=== PATIENT | male | born 1975 | race Two or more races ===

== ENCOUNTER 2024-06-18 05:12 | Inpatient (IN) | payer OTHER, SELFPAY ==
--- NOTE | 2024-06-18 | XR_ITS ---
Examination: MRI foot with intravenous contrast TECHNIQUE: Multiple axial sagittal coronal MRI foot images post intravenous administration 19 cc gadolinium INDICATION: Nonhealing wounds dorsum of the foot at the level of the tarsal bones 3 days with redness swelling and pain and blisters Examination type: June 18, 2024: 42 hours FINDINGS: Prominent soft tissue swelling dorsum of the foot Soft tissue abscess dorsum of the foot, dorsal to the tarsometatarsal junctions second through fifth metatarsals, proximal distal dimension 7 cm mediolateral dimension at least 5 cm cephalad caudad dimension 1.5 cm No lauren cortical bone destruction No pathologic fracture IMPRESSION: 7 x 5 x 1.5 cm soft tissue abscess dorsum of the foot
[2024-06-18 05:13] VITALS: BMI 34.7
[2024-06-18 05:16] VITALS: BP 137/89; PULSE 91; RESP 19; TEMP 36.7; O2SAT 96
--- NOTE | 2024-06-18 05:26 | XR_ITS ---
Examination: Right ankle 2 views TECHNIQUE: AP lateral right ankle 2 views Examination type: June 18, 2024 0611 hours INDICATION: Ankle swelling and pain beginning 8 days ago with nonhealing wound 3 days with discharge FINDINGS: Prominent bimalleolar soft tissue swelling as well as soft tissue swelling dorsum of the foot Soft tissue vascular calcifications No lauren cortical bone destruction at the ankle IMPRESSION: No fracture No lauren cortical bone destruction As clinically warranted, MRI ankle without contrast follow-up would best assess for soft tissue abscess, osteomyelitis
--- NOTE | 2024-06-18 05:27 | PD.EDRME ---
Rapid Medical Screening Exam RME Arrival date/time: 06/18/24 05:12 This is a case of 49-year-old male who came in in the emergency room due to right ankle pain swelling and redness for 8 days worsening symptoms now with the redness on the right lower leg test patient decided to start consult here in the emergency room Chief Complaint: Ankle/Foot Injury Time Seen by Provider: 06/18/24 05:26 Vital signs: Vital Signs Temperature 98.1 F 06/18/24 05:16 Pulse Rate 91 06/18/24 05:16 Respiratory Rate 19 06/18/24 05:16 Blood Pressure 137/89 H 06/18/24 05:16 Pulse Oximetry (%) 96 06/18/24 05:16 Oxygen Delivery Method Room Air 06/18/24 05:16
[2024-06-18 06:12] LABS: Basophils # (Auto) 0.1 Thou/mm3 (0.0-0.2); Basophils % (Auto) 1 % (0-2.5); Eosinophils % (Auto) 0 % (0-10); Hematocrit 39.8 % (41.0-53.0); Hemoglobin 13.2 g/dL (13.5-16.0); Immature Granulocytes % (Auto) 4 % (0-0); Immature Granulocytes Auto 0.61 Thou/mm3 (0.00-0.00); Lymphocytes # (Auto) 1.1 Thou/mm3 (1.0-4.8); Lymphocytes % (Auto) 7 % (10-50); Mean Corpuscular HGB Conc 33.2 g/dl (31.0-37.0); Mean Corpuscular Hemoglobin 29.1 pg (25.0-35.0); Mean Corpuscular Volume 88 fL (80-100); Monocytes # (Auto) 0.9 Thou/mm3 (0.0-0.8); Monocytes % (Auto) 6 % (0-12); Neutrophils % (Auto) 82 % (37-80); Nucleated Red Blood Cell % 0 /100 WBC (0); Platelet Count 257 Thou/mm3 (140-440); RDW Standard Deviation 42.3 fL (35.1-43.9); Red Blood Count 4.53 Miln/mm3 (4.50-5.90); White Blood Count 14.6 Thou/mm3 (3.8-10.6)
[2024-06-18 06:36] LABS: Alanine Aminotransferase 39 U/L (10-49); Albumin, Serum 3.7 gm/dL (3.5-5.0); Albumin/Globulin Ratio 1.1 (1.2-2.2); Alkaline Phosphatase 145 U/L (46-116); Anion Gap 9 (7-16); Aspartate Amino Transferase 17 U/L (0-34); BUN/Creatinine Ratio 16 Ratio (12-20); Bilirubin,Total 0.9 mg/dL (0.3-1.2); Blood Urea Nitrogen 13 mg/dL (9-23); Calcium 8.5 mg/dL (8.3-10.6); Calcium (Corrected) 8.7 mg/dL (8.5-10.1); Carbon Dioxide 26.8 mMol/L (20.0-31.0); Chloride 100 mMol/L (98-107); Creatinine (Component) 0.8 mg/dL (0.6-1.3); Estimated Creatinine Clearance 122.1 mL/min (>60); Globulin 3.3 gm/dL (2.3-3.5); Glucose 385 mg/dL (74-106); Osmolality,Calculated 288 (275-295); Potassium 3.9 mMol/L (3.4-5.1); Sodium 136 mMol/L (136-145); eGFR > 60 See Note
--- NOTE | 2024-06-18 06:47 | XR_ITS ---
Examination: Duplex scan of the lower extremity, unilateral right Date and time of exam: June 18, 2024 0804 hours INDICATIONS: Right leg pain 8 days nonhealing ulcers right leg 3 days Technique: Duplex scan of the extremity veins using B-mode/grayscale imaging and Doppler spectral analysis and color flow Attention is directed to internal echogenicity, compression and augmentation involving these veins, color flow assessment, spectral analysis Findings: Major deep venous structures in the extremity demonstrate normal course and caliber. There is no evidence of deep vein thrombosis. Normal color flow and spectral analysis Impression: Negative for DVT..
[2024-06-18] MEDS: HYDROcodone/APAP 5/325 TABLET 1 TAB PO ×2 (06:52→19:56)
[2024-06-18 07:11] LABS: Lactate (Lactic Acid) 1.5 mMol/L (0.4-2.0)
[2024-06-18 07:19] VITALS: BP 122/84; PULSE 82; RESP 16; TEMP 37.1; O2SAT 96
[2024-06-18 07:22] LABS: Sed Rate (ESR) 86 mm/hr (0-15)
[2024-06-18 07:40] LABS: Glucose Estimated Average 183 mg/dL (80-131)
[2024-06-18 07:41] LABS: C-Reactive Protein > 10.0 mg/dL (0.0-0.9); Procalcitonin 0.69 ng/ml (0.0-0.49)
--- NOTE | 2024-06-18 09:08 | PD.EDANKLE ---
Lower Extremity Injury RME/HPI General Chief Complaint: Ankle/Foot Injury Stated Complaint: RT FOOT SWELLING Time Seen by Provider: 06/18/24 05:26 Arrival date/time: 06/18/24 05:12 49-year-old male diabetic presents to the emergency department for complaints of right lower extremity swelling and pain patient for symptoms ongoing x 8 days patient reports he also noticed blistering to the leg x 3 days. Patient reports no fever nausea vomiting does report pain Limitations: no limitations RME / HPI RME / HPI Narrative: 06/18/24 05:12 This is a case of 49-year-old male who came in in the emergency room due to right ankle pain swelling and redness for 8 days worsening symptoms now with the redness on the right lower leg test patient decided to start consult here in the emergency room Related Data Home Medications ?Medication ?Instructions ?Recorded ?Confirmed atorvastatin 10 mg tablet 10 mg PO QPM 05/31/21 05/31/21 cholecalciferol (vitamin D3) 50 50 mcg PO QDAY 05/31/21 05/31/21 mcg (2,000 unit) capsule (Vitamin D3) empagliflozin 25 mg tablet 25 mg PO QAM 05/31/21 05/31/21 (Jardiance) ezetimibe 10 mg tablet 10 mg PO QDAY 05/31/21 05/31/21 omega-3 fatty acids 1,000 mg PO QDAY 05/31/21 05/31/21 sitagliptin phosphate 100 mg 100 mg PO QDAY 05/31/21 05/31/21 tablet (Januvia) Previous Rx's ?Medication ?Instructions ?Recorded amoxicillin 875 mg-potassium 1 tab PO BID #20 tabs 06/04/21 clavulanate 125 mg tablet Allergies Allergy/AdvReac Type Severity Reaction Status Date / Time No Known Allergies Allergy Verified 05/30/21 19:08 Review of Systems Review of Systems Systems Reviewed: All systems reviewed, normal except as documented Constitutional Constitutional: Reports system reviewed and no additional complaints, except as documented, Denies fever(s) and Denies headache(s) Eyes Eyes: Reports system reviewed and no additional complaints, except as documented and Denies blurry vision ENT Ears, Nose, Mouth, and Throat: Reports system reviewed and no additional complaints, except as documented, Denies headache(s), Denies nasal congestion and Denies nasal discharge Cardiovascular Cardiovascular: Reports system reviewed and no additional complaints, except as documented, Denies chest pain and Denies dyspnea Respiratory Respiratory: Reports system reviewed and no additional complaints, except as documented, Denies chest congestion, Denies cough and Denies dyspnea Gastrointestinal Gastrointestinal: Reports system reviewed and no additional complaints, except as documented and Denies abdominal pain Integumentary/Breasts Skin/Breast: Reports system reviewed and no additional complaints, except as documented, Denies rash and Reports other (Erythema, pitting edema, blistering right leg) Neurologic Neurologic: Reports system reviewed and no additional complaints, except as documented, Reports as per HPI and Denies headache(s) Past Medical History Past Medical History CARDIAC: Positive Cardiac Disorders, Hypercholesterolemia and Hypertension; Negative Congestive Heart Failure RESPIRATORY: Positive Asthma; Negative Chronic Obstructive Pulmonary Disease (COPD) GENITOURINARY: Positive Renal Disease ENDOCRINE: Positive Diabetes Mellitus Type 2; Negative Diabetes Mellitus Type 1 HEMATOLOGIC: Positive Sickle Cell Disease OTHER HISTORY: Negative Autoimmune Disease Family History FAMILY HISTORY: Negative Family Psychiatric Problems, Family Respiratory Disorders, Family Cardiac Disorders, Family Gastrointestinal Problems, Family Cancer, Family Surgery or Family Anesthesia Reaction Social History SMOKING STATUS: Current some day smoker ED Exam General Limitations: Present no limitations General appearance: Present alert and in no apparent distress Head Head exam: Present atraumatic Eye Eye exam: Present normal appearance, PERRL and EOMI ENT ENT exam: Present normal exam, normal oropharynx and mucous membranes moist Neck Neck exam: Present normal inspection, full ROM and trachea midline Chest Chest inspection: Present normal inspection and symmetric chest wall rise Respiratory Respiratory exam: Present normal lung sounds bilaterally Cardiovascular Cardiovascular exam: Present regular rate, normal rhythm and normal heart sounds Abdominal Exam Abdominal exam: Present soft and normal bowel sounds Extremities Exam Extremities exam: Present normal inspection and full ROM Back Exam Back exam: Present normal inspection and full ROM Neurological Exam Neurological exam: Present alert, oriented X3, CN II-XII intact, normal gait and reflexes normal; Absent motor sensory deficit Psychiatric Psychiatric exam: Present normal affect and normal mood Skin Skin exam: Present warm, dry and other (Erythema, pitting edema, blistering right leg) Course Quality Measures none Orders Category Date Time Status Admit to Inpatient Status Routine Admission 06/18/24 09:38 Active Patient Condition Routine Admission 06/18/24 09:38 Ordered Activity as Tolerated Routine Care 06/18/24 09:38 Ordered Bedside Blood Glucose ACHS Care 06/18/24 09:43 Active COVID-19 Screening Questionnaire NOW Care 06/18/24 09:14 Active Decision to Admit X1 Care 06/18/24 09:05 Completed Insert IV NOW Care 06/18/24 06:41 Active MRI Screening NOW Care 06/18/24 09:37 Active Notify provider NEEDED Care 06/18/24 09:38 Active Diet Carbohydrate Consistent Diet 06/18/24 Lunch Active MR foot RT w con Stat Exams 06/18/24 Ordered US venous doppler LE RT Stat Exams 06/18/24 06:47 Completed XR ankle RT 2V Stat Exams 06/18/24 05:26 Completed A1C [Glycohemoglobin w (eAG)] Stat Lab 06/18/24 07:00 Completed Blood Culture (Lab) Stat Lab 06/18/24 06:50 Received CBC AM DRAW Lab 06/19/24 05:00 Ordered CBC AM DRAW Lab 06/20/24 05:00 Ordered CBC AM DRAW Lab 06/21/24 05:00 Ordered CBC Stat Lab 06/18/24 05:55 Completed CMP [Comprehensive Metabolic Panel] Stat Lab 06/18/24 05:55 Completed CRP [C-Reactive Protein] Stat Lab 06/18/24 07:00 Completed Comprehensive Metabolic Panel AM DRAW Lab 06/19/24 05:00 Ordered Comprehensive Metabolic Panel AM DRAW Lab 06/20/24 05:00 Ordered Comprehensive Metabolic Panel AM DRAW Lab 06/21/24 05:00 Ordered ESR [Sed Rate (ESR)] Stat Lab 06/18/24 07:00 Completed Glycohemoglobin w (eAG) AM DRAW Lab 06/19/24 05:00 Ordered Lactic Acid [Lactate (Lactic Acid)] Stat Lab 06/18/24 07:00 Completed Lipid Panel AM DRAW Lab 06/19/24 05:00 Ordered Magnesium AM DRAW Lab 06/19/24 05:00 Ordered Phosphorous AM DRAW Lab 06/19/24 05:00 Ordered Procalcitonin Stat Lab 06/18/24 07:00 Completed Prothrombin Time with INR AM DRAW Lab 06/19/24 05:00 Ordered Acetaminophen Tab [Tylenol Tab] Med 06/18/24 09:37 Active 650 mg PO Q6H PRN Dextrose 50% Syr [D50w Syringe Abboject] Med 06/18/24 09:43 Active 25 ml IV Q15MIN PRN Dextrose 50% Syr [D50w Syringe Abboject] Med 06/18/24 09:43 Active 50 ml IV Q15MIN PRN Enoxaparin [Lovenox] Med 06/19/24 09:00 Active 40 mg SC QDAY Glucagon Inj Med 06/18/24 09:43 Active 1 mg IM Q15MIN PRN HYDROcodone*/APAP 5/325 [Monona 5/325] Med 06/18/24 09:37 Active 1 tab PO Q6HR PRN HYDROcodone*/APAP 5/325 [Monona 5/325] Med 06/18/24 06:41 Discontinued 1 tab PO X1 ONE INSULIN LISPRO (AdmeLOG) [HumaLOG] Med 06/18/24 11:30 Active See Protocol SC AC Insulin Glargine Inj [Lantus Inj] Med 06/18/24 09:45 Active 20 unit SC QDAY Morphine Inj Med 06/18/24 09:37 Active 2 mg IVP Q6HR PRN Ondansetron Inj [Zofran Inj] Med 06/18/24 09:37 Active 4 mg IV Q6H PRN Piper/Tazo 3.375 gm Premix [Zosyn] Med 06/18/24 14:00 Active 3.375 gm in 50 ml IV Q8HR Piper/Tazo 3.375 gm Premix [Zosyn] Med 06/18/24 09:02 Discontinued 3.375 gm in 50 ml IV X1 Vancomycin Pharmacy to Dose Med 06/18/24 09:50 Active 1 each IV QDAY PRN Vancomycin/Ns 1 gm Ivpb 200 ml Med 06/18/24 09:02 Active IV X1 Code Status Routine Oth 06/18/24 09:37 Ordered Vital Signs Vital signs: Vital Signs Temperature 98.1 F 06/18/24 05:16 Pulse Rate 91 06/18/24 05:16 Respiratory Rate 19 06/18/24 05:16 Blood Pressure 137/89 H 06/18/24 05:16 Pulse Oximetry (%) 96 06/18/24 05:16 Oxygen Delivery Method Room Air 06/18/24 05:16 O2 saturation 96% on room air within limits Extremity Injury, Lower MDM Narrative MDM Narrative:: 49-year-old male diabetic presents to the emergency department for complaints of right lower extremity swelling and pain patient for symptoms ongoing x 8 days patient reports he also noticed blistering to the leg x 3 days. Patient reports no fever nausea vomiting does report pain On exam patient has right lower extremity swelling and pain. Symptoms are consistent with infection Zosyn vancomycin ordered The patient's lab work patient has leukocytosis elevated CRP, ESR and procalcitonin lactic acid is negative Ultrasound is negative for DVT x-ray negative for acute bony abnormality patient does have good capillary refill extremity is not cool Patient discharged home in no distress to follow-up with primary care doctor in the next 24 to 48 hours and for any worsening symptoms to return to the ER immediately Patient data External records reviewed:: [facility] previous records Clinical information provided by:: patient Social determinants that could affect healthcare access:: none Patient has the following chronic illnesses:: See history How is presenting disease/condition affected by chronic disease/condition?: exacerbated by Evaluation data The following diagnostics were reviewed and interpreted by me:: lab results and radiology exam(s) Lab and/or radiology exams considered but not ordered:: Labs radiology obtain Interpretation Summary: Reviewed by me Medications / Prescriptions Medications or Prescriptions considered but not ordered:: Given Medication administrations:: Medication Administration History Acetaminophen (Acetaminophen 325 Mg Tablet) 650 mg PO Q6H PRN PRN Reason: Fever >101.5 Stop: 07/18/24 09:36 Hydrocodone Bitart/Acetaminophen (Hydrocodone/Apap 5/325 Tablet) 1 tab PO Q6HR PRN PRN Reason: PAIN SCALE 4-6 (Moderate Stop: 06/23/24 09:36 Dextrose (Dextrose 50%-Water Inj 50 Ml Syringe) 25 ml IV Q15MIN PRN PRN Reason: BG 50-70 responsive npo pt Stop: 07/18/24 09:42 Dextrose (Dextrose 50%-Water Inj 50 Ml Syringe) 50 ml IV Q15MIN PRN PRN Reason: BG <50 OR BG <70 & pt unresponsive Stop: 07/18/24 09:42 Enoxaparin Sodium (Enoxaparin Sod Inj 40 Mg/0.4 Ml Syringe) 40 mg SC QDAY TEMO Stop: 07/03/24 08:59 Glucagon (Glucagon Inj 1 Mg Vial) 1 mg IM Q15MIN PRN PRN Reason: BG <70, and no IV access Vancomycin/Sodium Chloride (Vancomycin/Ns 1 Gm Ivpb) 200 mls @ 120 mls/hr IV X1 ONE Stop: 06/18/24 10:41 Piperacillin/Tazobactam/Dextrose (Zosyn) 3.375 gm in 50 mls @ 12.5 mls/hr IV Q8HR TEMO Stop: 06/25/24 13:59 Insulin Glargine (Insulin Glargine (Lantus) 5 Unit/0.05 Ml (Per 5 Units)) 20 unit SC QDAY TEMO Stop: 07/18/24 09:44 Insulin Human Lispro (Insulin Lispro (Admelog) 1 Unit/0.01 Ml Unit) 0 unit SC AC TEMO; Protocol Stop: 07/18/24 11:29 Morphine Sulfate (Morphine Sulf Inj 10 Mg/Ml Vial) 2 mg IVP Q6HR PRN PRN Reason: PAIN SCALE 7-10 (Severe Stop: 06/23/24 09:36 Ondansetron HCl (Ondansetron Inj 2 Mg/Ml Inj 2 Ml) 4 mg IV Q6H PRN; Protocol PRN Reason: NAUSEA OR VOMITING Stop: 07/18/24 09:36 Pharmacy Consult (Vancomycin Pharmacy To Dose 1 Each Each) 1 each IV QDAY PRN PRN Reason: consult Stop: 07/18/24 09:49 Discontinued Medications Hydrocodone Bitart/Acetaminophen (Hydrocodone/Apap 5/325 Tablet) 1 tab PO X1 ONE Stop: 06/18/24 06:42 Last Admin: 06/18/24 06:52 Dose: 1 tab Documented By: JERZY Piperacillin/Tazobactam/Dextrose (Zosyn) 3.375 gm in 50 mls @ 100 mls/hr IV X1 ONE Stop: 06/18/24 09:31 Last Admin: 06/18/24 09:49 Dose: 100 mls/hr Documented By: EMILY Given Consultations Consultation(s) initiated? (list below): No Diagnosis Extremity Injury, Lower Differential Diagnosis: ankle sprain and strain, ankle fracture and other (Abscess, cellulitis) Most likely diagnosis given after review of the tests above:: Cellulitis right lower extremity Admission Indicated Admission indicated?: indicated Admission Request Was there a request for admission?: Yes Admission Attestation Admission request attestation: Discussed case with [] from Hospitalist service regarding admission. Discussed patients ED course, exam findings, labs, and radiology results. The Hospitalist [agrees,declines] to accept the patient for admission. Disposition Plan Disposition Plan: Admit Discharge Plan Plan Patient Disposition: Admit Acute Care w/in Hospital Discharge Disposition comment: Stable Prescriptions/Referrals Prescriptions/Med Rec: No Action atorvastatin 10 mg Tablet 10 mg PO QPM ezetimibe 10 mg Tablet 10 mg PO QDAY Fish Oil Capsule 1,000 mg PO QDAY Januvia 100 mg Tablet 100 mg PO QDAY cholecalciferol (vitamin D3) [Vitamin D3] 50 mcg (2,000 unit) Capsule 50 mcg PO QDAY Jardiance 25 mg Tablet 25 mg PO QAM amoxicillin-pot clavulanate 875-125 mg tablet 1 tab PO BID Qty: 20 0RF Referrals: Esperanza Frances FNP [Primary Care Provider] - In 1 week Problem List Clinical Impression: Cellulitis of leg, right, Leg pain, right, Poorly controlled diabetes mellitus Patient/Caregiver Discharge Instructions Print Language: Luxembourger Stand Alone Forms: Saida Award Info., Patient Portal Info Letter PA/WAD COMPRESSOR OPERATOR ADJUSTER Supervising Physician PA/WAD COMPRESSOR OPERATOR ADJUSTER Supervising Physician: Dr martines
--- NOTE | 2024-06-18 09:45 | PD.HHHP ---
Documentation for date of: 06/18/24 HPI - Hospitalist History of Present Illness History of present illness: Patient is a 49 years old male with past medical history of diabetes and high blood pressure who presented to the ED with complaint of right lower limb swelling and pain. He started having the swelling around 8 days back but for the last 3 days, he started having blisters which have popped out and decided to visit the ED. He states he felt feverish at home but did not check his temperature. Denies any trauma to the leg. Patient has history of cellulitis before but states that not to this extent. Patient checks his glucose at home but states that it is not well-controlled. Currently denies any shortness of breath, chest pain, fever, chills, nausea, vomiting, abdominal pain, change in bowel or bladder habit. In the ED, his blood pressure was 137/89, rest of the vitals are within normal limits. His WBC count is 14.6, hemoglobin 13.2, ESR 86, hemoglobin A1c 8.0, glucose 385, CRP more than 10, procalcitonin 0.69. His lactate is within normal limits. X-ray of the ankle was done, which did not show any lauren cortical bone destruction or fracture but showed prominent by malleolar soft tissue swelling as well as soft tissue swelling on dorsum of the foot. Patient received Gunter and dose of vancomycin and Zosyn in the ED. We will admit the patient for management of right lower limb cellulitis. 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, 20 years ago Review of Systems Review of Systems Systems Reviewed: All systems reviewed, normal except as documented Meds Home Medications and Allergies Home Medications ?Medication ?Instructions ?Recorded ?Confirmed ?Type atorvastatin 10 mg tablet 10 mg PO QPM 05/31/21 05/31/21 History cholecalciferol (vitamin D3) 50 50 mcg PO QDAY 05/31/21 05/31/21 History mcg (2,000 unit) capsule (Vitamin D3) empagliflozin 25 mg tablet 25 mg PO QAM 05/31/21 05/31/21 History (Jardiance) ezetimibe 10 mg tablet 10 mg PO QDAY 05/31/21 05/31/21 History omega-3 fatty acids 1,000 mg PO QDAY 05/31/21 05/31/21 History sitagliptin phosphate 100 mg 100 mg PO QDAY 05/31/21 05/31/21 History tablet (Januvia) Allergies Allergy/AdvReac Type Severity Reaction Status Date / Time No Known Allergies Allergy Verified 05/30/21 19:08 Exam Vital Signs Temp Pulse Resp BP Pulse Ox O2 Del Method 98.7 F 82 16 122/84 96 Room Air 06/18/24 07:19 06/18/24 07:19 06/18/24 07:19 06/18/24 07:19 06/18/24 07:19 06/18/24 07:19 Narrative General: Patient appears comfortable, alert and oriented, cooperative, able to answer question and follow commands appropriately HEENT: EOMI, PERRLA, no icterus or pallor Chest: Clear to auscultate bilaterally, without wheeze or crackles CVS: RRR, S1 and S2 heard without murmurs Abdomen: Soft, mildly distended, no tenderness, bowel sounds present Neuro: Alert and oriented x 4, moving all his limbs, no focal neurological deficit, cranial nerves grossly intact Extremity/skin: Large cellulitis on right leg and foot extending up to below knee level, popped blister with foul-smelling discharge, erythematous, warm and tender Psych: Appropriate mood and behavior Results - Hospitalist Labs Diagrams: 06/18/24 05:55 06/18/24 05:55 Labs: Short CBC 06/18/24 Range/Units 05:55 WBC 14.6 H (3.8-10.6) Thou/mm3 Hgb 13.2 L (13.5-16.0) g/dL Hct 39.8 L (41.0-53.0) % Plt Count 257 (140-440) Thou/mm3 BMP 06/18/24 05:55 Sodium 136 Potassium 3.9 Chloride 100 Carbon Dioxide 26.8 BUN 13 Creatinine 0.8 Glucose 385 H Calcium 8.5 Liver Function 06/18/24 Range/Units 05:55 Total Bilirubin 0.9 (0.3-1.2) mg/dL AST 17 (0-34) U/L ALT 39 (10-49) U/L Alkaline Phosphatase 145 H (46-116) U/L Albumin 3.7 (3.5-5.0) gm/dL Assessment & Plan -Hospitalist Additional Assessment Patient is a 49 years old male with past medical history of diabetes and high blood pressure who presented to the ED with swelling of right lower limb. Found to have cellulitis and abscess of right lower extremity. #Right leg cellulitis #Right foot abscess #Diabetic foot Patient presented with pain, swelling, erythema, blisters with discharge on right leg Has a WBC count of 14.6 with neutrophilic predominance, ESR 86, CRP more than 10 and procalcitonin 0.69 Ankle x-ray shows prominent bimalleolar soft tissue swelling as well as soft tissue swelling on the dorsum of the foot; soft tissue vascular calcification MRI of right foot shows 7 x 5 x 1.5 cm soft tissue abscess on dorsum of the foot, negative for osteomyelitis or gas gangrene We will start patient on broad-spectrum antibiotics with IV vancomycin and Zosyn Obtained blood culture We will obtain general surgery consult to evaluate for abscess drainage Wound care referral Analgesic regimen #Type 2 diabetes mellitus Patient had a blood glucose of 385 and hemoglobin A1c 8.0 on presentation Does not use insulin at home Started on Lantus 20 daily along with sliding scale Hypoglycemia protocol in place, frequent glucose checks #Hypertension Patient's blood pressure is currently controlled, we will start antihypertensives if it starts increasing CODE STATUS: Full code DVT prophylaxis: Lovenox SC Diet: Low carbohydrate consistent [facility] and right leg cellulitis and IV antibiotics Tisha Orta MD Quality Measures Quality Measures none
[2024-06-18] MEDS: PIPER/TAZO 3.375 GM PREMIX 3.375 GM/50 ML BAG IV ×3 (09:49→21:47)
[2024-06-18] MEDS: INSULIN GLARGINE (Lantus) 5 UNIT/0.05 ML (PER 5 UNITS) 20 UNIT SC (10:28)
[2024-06-18] MEDS: VANCOMYCIN/NS 1 GM IVPB 200 ML IV ×2 (10:36→21:34)
[2024-06-18] MEDS: INSULIN LISPRO (AdmeLOG) 1 UNIT/0.01 ML UNIT SC ×2 (13:26→19:27)
--- NOTE | 2024-06-18 19:20 | PD.SURCONS ---
HPI Consult details Consult date: 06/18/24 Reason for consultation narrative: The patient was seen in consultation because of MRI abnormality which shows an abscess over the right foot. History of present illness: Patient was in his usual health until a week ago when he started developing swelling over the right lower extremity. Denies any history of injury but he has a poorly controlled diabetes. Then he developed a blister over the dorsum of the right foot as well as behind the popliteal area. Those blisters ruptured and he started having some drainage but he is not sure whether it is pus. He is having increasing pain over the right lower extremity. Because of the increasing swelling and drainage he came to the emergency room. Patient denies having such problems in the past. The problem got worse from last Thursday. Other medical problem consist of diabetes hypertension cholesterolemia and obesity. He had a history of cellulitis and abscess of the face in the past Review of Systems Constitutional Constitutional: Denies headache(s) ENT Ears, Nose, Mouth, and Throat: Denies headache(s) Neurologic Neurologic: Reports system reviewed and no additional complaints, except as documented, Reports as per [facility] and Denies headache(s) Past Medical History Past Medical History CARDIAC: Positive Cardiac Disorders, Hypercholesterolemia and Hypertension; Negative Congestive Heart Failure RESPIRATORY: Positive Asthma; Negative Respiratory Disorders or Chronic Obstructive Pulmonary Disease (COPD) GENITOURINARY: Positive Renal Disease ENDOCRINE: Positive Diabetes Mellitus Type 2; Negative Diabetes Mellitus Type 1 HEMATOLOGIC: Positive Sickle Cell Disease OTHER HISTORY: Negative Autoimmune Disease Family History FAMILY HISTORY: Negative Family Psychiatric Problems, Family Respiratory Disorders, Family Cardiac Disorders, Family Gastrointestinal Problems, Family Cancer, Family Surgery or Family Anesthesia Reaction Social History SMOKING STATUS: Current some day smoker Meds Home Medications and Allergies Home Medications ?Medication ?Instructions ?Recorded ?Confirmed ?Type atorvastatin 10 mg tablet 10 mg PO QPM 05/31/21 05/31/21 History cholecalciferol (vitamin D3) 50 50 mcg PO QDAY 05/31/21 05/31/21 History mcg (2,000 unit) capsule (Vitamin D3) empagliflozin 25 mg tablet 25 mg PO QAM 05/31/21 05/31/21 History (Jardiance) ezetimibe 10 mg tablet 10 mg PO QDAY 05/31/21 05/31/21 History omega-3 fatty acids 1,000 mg PO QDAY 05/31/21 05/31/21 History sitagliptin phosphate 100 mg 100 mg PO QDAY 05/31/21 05/31/21 History tablet (Januvia) Allergies Allergy/AdvReac Type Severity Reaction Status Date / Time No Known Allergies Allergy Verified 05/30/21 19:08 Exam Vital Signs Temp Pulse Resp BP Pulse Ox O2 Del Method 98.7 F 82 16 122/84 96 Room Air 06/18/24 07:19 06/18/24 07:19 06/18/24 07:19 06/18/24 07:19 06/18/24 07:19 06/18/24 07:19 Narrative Exam Physical examination revealed a morbidly obese male who is 5 foot 6 inches tall weighing 215 pounds. His vital signs are stable Routine Extremities Exam Comments: Examination of the right lower extremities revealed swelling starting from the midportion of the leg all the way down to the foot. There is some superficial ulceration over the popliteal region because of the rupture of the bleb with resultant superficial ulcer. It is not draining. Patient also has a blister over the dorsal aspect of the right foot. Palpation is tender. Pedal pulses are difficult to evaluate because of the swelling Results Results: Laboratory Laboratory Narrative: Patient's WBC is elevated to 14,500 Results: Imaging Imaging narrative: X-ray of the right foot is negative for osteomyelitis. However there is soft tissue infection seen on the MRI possibly with an abscess Assessment & Plan Additional Assessment Additional comments: Impression: Cellulitis and possibly abscess over the dorsum of the right foot Diabetes mellitus Hyperlipidemia Obesity Plan Plan: At this stage I do not see any abscess that needs drainage even though there is some soft fluctuant area at the dorsum of the right foot. I would keep the foot elevated and give him IV antibiotics and I will reevaluate him to see if there is any drainable abscess. Thank you very much
--- NOTE | 2024-06-18 19:33 | PC.NURSE ---
report given to moses on med/surg floor. pt to go to room 380
[2024-06-18 19:46] VITALS: BMI 34.7
[2024-06-18 20:00] VITALS: BP 133/80; PULSE 82; RESP 18; TEMP 36.7; O2SAT 94
[2024-06-19] VITALS (15 sets, daily range): BP systolic 119–138; BP diastolic 64–100; PULSE 70–93; RESP 16–20; TEMP 36.1–37.1; O2SAT 95–100
[2024-06-19] MEDS: MORPHINE SULF INJ 10 MG/ML VIAL 2 MG IVP ×3 (00:29→17:05)
[2024-06-19] MEDS: PIPER/TAZO 3.375 GM PREMIX 3.375 GM/50 ML BAG IV ×3 (05:12→21:20)
[2024-06-19 06:04] LABS: Basophils # (Auto) 0.1 Thou/mm3 (0.0-0.2); Basophils % (Auto) 1 % (0-2.5); Eosinophils % (Auto) 0 % (0-10); Hemoglobin 12.4 g/dL (13.5-16.0); Immature Granulocytes % (Auto) 5 % (0-0); Lymphocytes # (Auto) 1.7 Thou/mm3 (1.0-4.8); Lymphocytes % (Auto) 15 % (10-50); Mean Corpuscular HGB Conc 34.4 g/dl (31.0-37.0); Mean Corpuscular Hemoglobin 29.5 pg (25.0-35.0); Mean Corpuscular Volume 86 fL (80-100); Monocytes # (Auto) 0.8 Thou/mm3 (0.0-0.8); Monocytes % (Auto) 7 % (0-12); Neutrophils # (Auto) 8.5 Thou/mm3 (1.8-7.7); Neutrophils % (Auto) 73 % (37-80); Nucleated Red Blood Cell % 0 /100 WBC (0); Platelet Count 244 Thou/mm3 (140-440); RDW Standard Deviation 41.6 fL (35.1-43.9); White Blood Count 11.7 Thou/mm3 (3.8-10.6)
[2024-06-19 06:19] LABS: Prothrombin Time 11.2 Seconds (9.0-12.2)
[2024-06-19] MEDS: HYDROcodone/APAP 5/325 TABLET 1 TAB PO ×3 (06:28→21:20)
[2024-06-19 06:38] LABS: Alanine Aminotransferase 46 U/L (10-49); Albumin, Serum 3.4 gm/dL (3.5-5.0); Albumin/Globulin Ratio 1.2 (1.2-2.2); Alkaline Phosphatase 124 U/L (46-116); Anion Gap 8 (7-16); Aspartate Amino Transferase 34 U/L (0-34); BUN/Creatinine Ratio 27 Ratio (12-20); Bilirubin,Total 0.7 mg/dL (0.3-1.2); Blood Urea Nitrogen 19 mg/dL (9-23); Calcium 8.1 mg/dL (8.3-10.6); Calcium (Corrected) 8.6 mg/dL (8.5-10.1); Cardiac Risk Estimate 4.4 RATIO (4.0-6.7); Chloride 103 mMol/L (98-107); Cholesterol 132 mg/dL (132-200); Creatinine (Component) 0.7 mg/dL (0.6-1.3); Estimated Creatinine Clearance 139.6 mL/min (>60); Globulin 2.9 gm/dL (2.3-3.5); Glucose 144 mg/dL (74-106); HDL Cholesterol 30 mg/dL (40-60); LDL Cholesterol,Calculated 66 mg/dL (0-130); Magnesium 1.8 mg/dL (1.6-2.6); Osmolality,Calculated 282 (275-295); Phosphorous 3.5 mg/dL (2.4-5.1); Potassium 4.5 mMol/L (3.4-5.1); Sodium 139 mMol/L (136-145); Total Protein 6.3 gm/dL (5.7-8.2); Triglycerides 181 mg/dL (30-150); eGFR > 60 See Note
[2024-06-19] MEDS: INSULIN GLARGINE (Lantus) 5 UNIT/0.05 ML (PER 5 UNITS) 20 UNIT SC (09:39)
[2024-06-19] MEDS: VANCOMYCIN/NS 1 GM IVPB 200 ML IV ×2 (09:40→21:57)
[2024-06-19] MEDS: ENOXAPARIN SOD INJ 40 MG/0.4 ML SYRINGE SC (09:40)
--- NOTE | 2024-06-19 13:09 | ESPR_ITS ---
Documentation for date of: 06/19/24 Subjective - Hospitalist Subjective Interval history: At bedside today, patient states he is feeling better compared to yesterday. His pain on his right leg has improved. Discussed with general surgery, patient is planned for incision and drainage of his right foot abscess. Continues to be on broad-spectrum antibiotics, awaiting culture results. Review of Systems Review of Systems Systems Reviewed: All systems reviewed, normal except as documented Exam Vital Signs Temp Pulse Resp BP Pulse Ox O2 Del Method 97.5 F 70 17 121/80 95 Room Air 06/19/24 08:00 06/19/24 08:00 06/19/24 08:00 06/19/24 08:00 06/19/24 08:00 06/19/24 08:00 Narrative General: Alert and oriented, comfortable, able to answer questions and follow commands appropriately HEENT: EOMI, PERRLA, no pallor or icterus Cardio: RRR, S1 and S2 heard without murmurs Respiratory: Clear to auscultate bilaterally, no wheeze or crackles Abdomen: Soft, nontender, noted midline scar, bowel sounds present MSK: Redness, swelling and tenderness on right leg, areas of ruptured blisters around ankle and calf, swelling appears to be decreasing compared to yesterday Neuro:Alert and Oriented x 4, moving all extremities, no focal neurological deficit Psych: Appropriate mood and behaviour Objective - Hospitalist Labs Diagram: 06/19/24 05:48 06/19/24 05:48 Labs: Laboratory Results - last 24 hr 06/19/24 05:48 WBC 11.7 H RBC 4.20 L Hgb 12.4 L Hct 36.0 L MCV 86 MCH 29.5 MCHC 34.4 RDW Std Deviation 41.6 Plt Count 244 Neut % (Auto) 73 Lymph % (Auto) 15 Hooker % (Auto) 7 Eos % (Auto) 0 Baso % (Auto) 1 Neut # (Auto) 8.5 H Lymph # (Auto) 1.7 Hooker # (Auto) 0.8 Eos # (Auto) 0.0 Baso # (Auto) 0.1 Immature Gran # (Auto) 0.60 H Absolute Nucleated RBC 0.00 Immature Gran % 5 H Nucleated RBC % 0 PT 11.2 INR 1.0 Sodium 139 Potassium 4.5 D Chloride 103 Carbon Dioxide 28.0 Anion Gap 8 BUN 19 Creatinine 0.7 Estim Creat Clear Calc 139.6 eGFR > 60 BUN/Creatinine Ratio 27 H Glucose 144 H D Calculated Osmolality 282 Calcium 8.1 L Corrected Calcium 8.6 Phosphorus 3.5 Magnesium 1.8 Total Bilirubin 0.7 AST 34 ALT 46 Alkaline Phosphatase 124 H D Total Protein 6.3 Albumin 3.4 L Globulin 2.9 Albumin/Globulin Ratio 1.2 Triglycerides 181 H Cholesterol 132 LDL Cholesterol, Calc 66 HDL Cholesterol 30 L Cholesterol/HDL Ratio 4.4 Assessment & Plan Assessment: Patient is a 49 years old male with past medical history of diabetes and high blood pressure who presented to the ED with swelling of right lower limb. Found to have cellulitis and abscess of right lower extremity. #Right leg cellulitis #Right foot abscess #Diabetic foot Patient presented with pain, swelling, erythema, blisters with discharge on right leg On presentation, patient had a WBC count of 14.6 with neutrophilic predominance, ESR 86, CRP more than 10 and procalcitonin 0.69 Ankle x-ray shows prominent bimalleolar soft tissue swelling as well as soft tissue swelling on the dorsum of the foot; soft tissue vascular calcification MRI of right foot shows 7 x 5 x 1.5 cm soft tissue abscess on dorsum of the foot, negative for osteomyelitis or gas gangrene Continues to be on IV vancomycin and Zosyn WBC count improving Pending blood culture General Surgery following, patient planned for incision and drainage, appreciate recommendations Wound care following Analgesic regimen #Type 2 diabetes mellitus Patient had a blood glucose of 385 and hemoglobin A1c 8.0 on presentation Does not use insulin at home Continues to be on Lantus 20 daily along with sliding scale Hypoglycemia protocol in place, frequent glucose checks #Hypertension Patient's blood pressure is currently controlled, we will start antihypertensives if it starts increasing CODE STATUS: Full code DVT prophylaxis: Lovenox SC Diet: Low carbohydrate consistent Disposition: MedSur for management of right foot abscess and right leg cellulitis and IV antibiotics, plan for incision and drainage and pending culture results Tisha Orta MD Time Spent with Patient Time: Total time spent is greater than 50% in coordination of care (as documented) at patient's floor/unit and/or counseling patient: Time with patient: Greater than 35 minutes Reason for Continued Stay Reason for continued stay: IV antibiotics Quality Measures Quality Measures none
--- NOTE | 2024-06-19 17:52 | EKG_ITS ---
[facility] Test Date: 2024-06-19 Pat Name: HARMEET FONTAINE [facility] Gender: Male Undergraduate Advisor: EFRAÍN : [id number] Requested By: Tim Lizarraga Order Number: [id number] Reading MD: Tim Lizarraga Measurements Intervals [place] Rate: 91 P: 6 NC: 125 QRS: -3 QRSD: 89 T: -4 QT: 366 QTc: 451 Interpretive Statements SINUS RHYTHM LOW QRS VOLTAGE IN PRECORDIAL LEADS INFERIOR MYOCARDIAL INFARCTION , OF INDETERMINATE AGE No previous ECG available for comparison /[id number]/[email or web address]/[id number]
--- NOTE | 2024-06-19 18:32 | SUR.PHASEI ---
1832 Patient arrived to recovery resting comfortably in [facility], on oxygen 8L via oxygen with an oral airway in place, breathing unlabored, vital signs stable, dressing intact to right leg x2; 1/2 inch iodaform packing fluffs, kerlix roll, silk tape, no bleeding noted, report received from Cali OBRIEN and Dr. Nelson
--- NOTE | 2024-06-19 18:34 | PD.SUROPNT ---
Date of Procedure 06/19/24 Pre Op Diagnosis Abscess dorsum of the right foot and popliteal region right foot Post Op Diagnosis Same Procedure Incision and drainage of the abscess dorsum of the foot with debridement Incision and drainage of the abscess behind the right knee in the popliteal fossa. Findings Patient had a thick purulent material most probably staphylococcal in origin and both displaces and required drainage. Abscess of the right foot was extending into the subcutaneous tissue Procedure Description After the patient was brought to the operating room LMA anesthesia was given. His right leg and the right foot was washed with Betadine solution. Timeout was performed. I approached the dorsum of the right foot first. There was a necrotic skin size of a postage stamp measuring about 3 to 4 cm in diameter. This was excised using a 15 blade knife and then thick purulent material was drained. Then I undermined the skin and found out that there was extensive infection. The surrounding skin was compressed and major amount of purulent material came from the skin. Then I irrigated the wound extensively and then packed it with 1 inch iodoform gauze. Next Then I approached the back of the right knee at the popliteal fossa. There was an incision made and I excised this portion of the skin and considerable amount of pus was drained out. Wound was then irrigated with saline solution. This was also undermining towards the lower portion of the leg. Then I packed it with half an inch iodoform gauze and dressing was applied with fluff and Kerlix roll. Anesthesia other Pathology / specimen None Estimated Blood Loss 30 Surgeon Ashleigh Alcala MD Surgical Staff Operation Date: 06/19/24 17:00 Case Staff Anesthesiologist: Tim Nelson
--- NOTE | 2024-06-19 18:48 | SUR.PHASEI ---
[address] Nelson ordered a urgent EKG, results review with Dr. Nelson, EKG- normal sinus rhythm, no new order at this time.
--- NOTE | 2024-06-19 19:25 | SUR.PHASEI ---
192 Report given to Peyton OBRIEN, patient meets discharge criteria from recovery, awake and alert, on oxygen 3L via nasal cannula, breathing unlabored, vital signs stable, denies pain and nausea- drinking water, dressing intact; no bleeding noted. 192 Patient transported via gurney to room 380 without incident.
--- NOTE | 2024-06-19 19:53 | PC.NURSE ---
MD Amado made aware that pt have a lot of PVC during OR and EKG was done and shows sinus rhythm and inferior myocardial infarction, MD Amado made aware that pt is [place] not on court monitor, per MD she will review pts chart and will call me back.
[2024-06-19] MEDS: ACETAMINOPHEN IVPB 1,000 MG/100 ML VIAL 250 MG IV (20:02)
[2024-06-19] MEDS: INSULIN LISPRO (AdmeLOG) 1 UNIT/0.01 ML UNIT SC (21:18)
[2024-06-19 21:45] LABS: Albumin, Serum 3.3 gm/dL (3.5-5.0); Anion Gap 8 (7-16); BUN/Creatinine Ratio 24 Ratio (12-20); Blood Urea Nitrogen 19 mg/dL (9-23); Calcium 7.6 mg/dL (8.3-10.6); Calcium (Corrected) 8.2 mg/dL (8.5-10.1); Carbon Dioxide 24.8 mMol/L (20.0-31.0); Chloride 98 mMol/L (98-107); Creatinine (Component) 0.8 mg/dL (0.6-1.3); Estimated Creatinine Clearance 122.1 mL/min (>60); Glucose 344 mg/dL (74-106); Osmolality,Calculated 278 (275-295); Phosphorous 4.7 mg/dL (2.4-5.1); Potassium 4.4 mMol/L (3.4-5.1); Sodium 131 mMol/L (136-145); Vancomycin,Trough 4.3 mcg/mL (5.0-10.0); eGFR > 60 See Note
[2024-06-20] VITALS (8 sets, daily range): BP systolic 103–129; BP diastolic 72–93; PULSE 58–86; RESP 16–20; TEMP 35.6–36.4; O2SAT 95–98; BMI 34.5
[2024-06-20] MEDS: ACETAMINOPHEN IVPB 1,000 MG/100 ML VIAL 250 MG IV ×2 (03:28→06:28)
[2024-06-20] MEDS: PIPER/TAZO 3.375 GM PREMIX 3.375 GM/50 ML BAG IV ×3 (05:13→22:37)
[2024-06-20 06:19] LABS: Basophils # (Auto) 0.1 Thou/mm3 (0.0-0.2); Basophils % (Auto) 0 % (0-2.5); Eosinophils % (Auto) 0 % (0-10); Hematocrit 32.7 % (41.0-53.0); Hemoglobin 11.4 g/dL (13.5-16.0); Immature Granulocytes % (Auto) 4 % (0-0); Immature Granulocytes Auto 0.55 Thou/mm3 (0.00-0.00); Lymphocytes # (Auto) 0.9 Thou/mm3 (1.0-4.8); Lymphocytes % (Auto) 6 % (10-50); Mean Corpuscular HGB Conc 34.9 g/dl (31.0-37.0); Mean Corpuscular Hemoglobin 29.8 pg (25.0-35.0); Mean Corpuscular Volume 85 fL (80-100); Monocytes # (Auto) 0.6 Thou/mm3 (0.0-0.8); Monocytes % (Auto) 4 % (0-12); Neutrophils # (Auto) 12.6 Thou/mm3 (1.8-7.7); Neutrophils % (Auto) 86 % (37-80); Nucleated Red Blood Cell % 0 /100 WBC (0); Platelet Count 225 Thou/mm3 (140-440); RDW Standard Deviation 40.5 fL (35.1-43.9); Red Blood Count 3.83 Miln/mm3 (4.50-5.90); White Blood Count 14.8 Thou/mm3 (3.8-10.6)
[2024-06-20 06:42] LABS: Alanine Aminotransferase 55 U/L (10-49); Albumin, Serum 3.1 gm/dL (3.5-5.0); Alkaline Phosphatase 166 U/L (46-116); Anion Gap 10 (7-16); Aspartate Amino Transferase 30 U/L (0-34); BUN/Creatinine Ratio 35 Ratio (12-20); Bilirubin,Total 0.9 mg/dL (0.3-1.2); Blood Urea Nitrogen 21 mg/dL (9-23); Calcium 7.8 mg/dL (8.3-10.6); Calcium (Corrected) 8.5 mg/dL (8.5-10.1); Carbon Dioxide 26.3 mMol/L (20.0-31.0); Chloride 100 mMol/L (98-107); Creatinine (Component) 0.6 mg/dL (0.6-1.3); Estimated Creatinine Clearance 162.9 mL/min (>60); Globulin 3.2 gm/dL (2.3-3.5); Glucose 200 mg/dL (74-106); Osmolality,Calculated 280 (275-295); Potassium 4.3 mMol/L (3.4-5.1); Sodium 136 mMol/L (136-145); Total Protein 6.3 gm/dL (5.7-8.2); eGFR > 60 See Note
[2024-06-20] MEDS: INSULIN LISPRO (AdmeLOG) 1 UNIT/0.01 ML UNIT SC ×4 (07:44→20:16)
[2024-06-20] MEDS: ENOXAPARIN SOD INJ 40 MG/0.4 ML SYRINGE SC (08:12)
[2024-06-20] MEDS: VANCOMYCIN/NS 1 GM IVPB 200 ML IV ×3 (08:12→22:37)
[2024-06-20] MEDS: INSULIN GLARGINE (Lantus) 5 UNIT/0.05 ML (PER 5 UNITS) 20 UNIT SC (08:13)
--- NOTE | 2024-06-20 09:07 | PC.SS ---
Follow up note: ID recommendations pending.
[2024-06-20] MEDS: INSULIN GLARGINE (Lantus) 5 UNIT/0.05 ML (PER 5 UNITS) 3 UNIT SC (09:39)
--- NOTE | 2024-06-20 13:50 | ESPR_ITS ---
Documentation for date of: 06/20/24 Subjective Subjective Interval history: Patient examined at bedside today. No acute overnight events. Patient reports that he is doing well. He reports very little pain in his right leg. He is wondering when to go home. He denies having fever, vomiting. No other complaints at this time. Exam Vital Signs Temp Pulse Resp BP Pulse Ox O2 Del Method O2 Flow Rate 97.0 F 75 18 118/77 98 Room Air 3 06/20/24 12:00 06/20/24 12:00 06/20/24 12:00 06/20/24 12:00 06/20/24 12:00 06/20/24 12:00 06/19/24 19:17 Narrative Exam General: AAOx3, NAD, Azeri-speaking male, obese HEENT: Moist mucous membranes, conjunctiva clear, EOMI, PERRLA, Cardiovascular: S1, S2, radial pulses +2 bilat, RRR Pulmonary: CTAB bilat no cough, no wheezing GI: No tenderness to light or deep palpitation, no guarding, rigidity, rebound tenderness or distension Extremities: Dressing present on right lower extremity, no active drainage, tender to palpation over right lower extremity, slightly pitting Neuro: AAOx3, no focal motor or sensory deficits in the UE or LE bilat Psych: Good judgement, thought and behavior. Cooperative Objective Labs 06/20/24 05:56 06/20/24 05:56 Labs: Laboratory Results - last 24 hr 06/19/24 06/20/24 21:10 05:56 WBC 14.8 H RBC 3.83 L Hgb 11.4 L Hct 32.7 L MCV 85 MCH 29.8 MCHC 34.9 RDW Std Deviation 40.5 Plt Count 225 Neut % (Auto) 86 H Lymph % (Auto) 6 L Grant % (Auto) 4 Eos % (Auto) 0 Baso % (Auto) 0 Neut # (Auto) 12.6 H Lymph # (Auto) 0.9 L Grant # (Auto) 0.6 Eos # (Auto) 0.0 Baso # (Auto) 0.1 Immature Gran # (Auto) 0.55 H Absolute Nucleated RBC 0.00 Immature Gran % 4 H Nucleated RBC % 0 Sodium 131 L 136 Potassium 4.4 4.3 Chloride 98 100 Carbon Dioxide 24.8 26.3 Anion Gap 8 10 BUN 19 21 Creatinine 0.8 0.6 Estim Creat Clear Calc 122.1 162.9 eGFR > 60 > 60 BUN/Creatinine Ratio 24 H 35 H Glucose 344 H D 200 H D Calculated Osmolality 278 280 Calcium 7.6 L 7.8 L Corrected Calcium 8.2 L 8.5 Phosphorus 4.7 Total Bilirubin 0.9 AST 30 ALT 55 H Alkaline Phosphatase 166 H D Total Protein 6.3 Albumin 3.3 L 3.1 L Globulin 3.2 Albumin/Globulin Ratio 1.0 L Vancomycin Trough 4.3 L Quality Measures Quality Measures none Assessment & Plan Assessment Current Active Medications: Generic Name Dose Route Start Last Admin Trade Name Freq PRN Reason Stop Dose Admin Acetaminophen 650 mg 06/18/24 09:37 Acetaminophen 325 Mg Tablet PO 07/18/24 09:36 Q6H PRN Fever >101.5 Hydrocodone Bitart/Acetaminophen 1 tab 06/20/24 11:21 Hydrocodone/Apap 5/325 Tablet PO 06/23/24 09:36 Q6HR PRN PAIN 1-6 (mild-mod Dextrose 25 ml 06/18/24 09:43 Dextrose 50%-Water Inj 50 Ml Syringe IV 07/18/24 09:42 Q15MIN PRN BG 50-70 responsive npo pt Dextrose 50 ml 06/18/24 09:43 Dextrose 50%-Water Inj 50 Ml Syringe IV 07/18/24 09:42 Q15MIN PRN BG <50 OR BG <70 & pt unresponsive Enoxaparin Sodium 40 mg 06/19/24 09:00 06/20/24 08:12 Enoxaparin Sod Inj 40 Mg/0.4 Ml Syringe SC 07/03/24 08:59 40 mg QDAY TEMO Administration Glucagon 1 mg 06/18/24 09:43 Glucagon Inj 1 Mg Vial IM Q15MIN PRN BG <70, and no IV access Piperacillin/Tazobactam/Dextrose 3.375 gm in 50 mls @ 12.5 mls/hr 06/18/24 14:00 06/20/24 05:13 Zosyn IV 06/25/24 13:59 12.5 mls/hr Q8HR TEMO Administration Vancomycin/Sodium Chloride 200 mls @ 120 mls/hr 06/20/24 07:30 06/20/24 08:12 Vancomycin/Ns 1 Gm Ivpb IV 06/27/24 07:29 120 mls/hr Q8HR [facility] Administration Protocol Insulin Glargine 23 unit 06/21/24 09:00 Insulin Glargine (Lantus) 5 Unit/0.05 Ml (Per 5 Units) SC 07/21/24 08:59 QDAY [facility] Insulin Human Lispro 0 unit 06/19/24 21:00 06/20/24 12:42 Insulin Lispro (Admelog) 1 Unit/0.01 Ml Unit SC 07/19/24 20:59 3 unit ACHS [facility] Administration Protocol Morphine Sulfate 5 mg 06/20/24 11:21 Morphine Sulf Inj 10 Mg/Ml Vial IVP 06/24/24 18:31 Q4HR PRN PAIN 1-6 (mild-mod Ondansetron HCl 4 mg 06/18/24 09:37 Ondansetron Inj 2 Mg/Ml Inj 2 Ml IV 07/18/24 09:36 Q6H PRN NAUSEA OR VOMITING Protocol Pharmacy Consult 1 each 06/18/24 09:50 Vancomycin Pharmacy To Dose 1 Each Each IV 07/18/24 09:49 QDAY PRN consult Plan Assessment Patient is a 49 years old male with past medical history of diabetes and high blood pressure who presented to the ED with swelling of right lower limb. Found to have cellulitis and abscess of right lower extremity. #Right leg cellulitis #Right foot abscess, s/p I&D Post-operative day one #Abscess of R popliteal region, s/p I&D Post-operative day one #Diabetic foot Patient presented with pain, swelling, erythema, blisters with discharge on right leg On presentation, patient had a WBC count of 14.6 with neutrophilic predominance, ESR 86, CRP more than 10 and procalcitonin 0.69 Ankle x-ray shows prominent bimalleolar soft tissue swelling as well as soft tissue swelling on the dorsum of the foot; soft tissue vascular calcification MRI of right foot shows 7 x 5 x 1.5 cm soft tissue abscess on dorsum of the foot, negative for osteomyelitis or gas gangrene Blood cultures no growth after 2 days Abscess initial culture shows 2 white blood cells and +2 GPC on Gram stain Abscess dorsum of the right foot and popliteal region right foot drained by Dr. Gupta, General Surgery Plan: Continues to be on IV vancomycin and Zosyn Follow-up MRSA nares WBC count improving Pending blood culture General Surgery consulted, appreciate recs Wound care following Analgesic regimen #Type 2 diabetes mellitus Patient had a blood glucose of 385 and hemoglobin A1c 8.0 on presentation Does not use insulin at home Plan: Lantus 23 units SSI Hypoglycemia protocol in place, frequent glucose checks #Hypertension Patient's blood pressure is currently controlled, we will start antihypertensives if it starts increasing #Health Maintenance Disposition: MedSurg DVT prophylaxis: Lovenox GI prophylaxis: Not indicated at this time Diet: Carb low CODE STATUS: Full code Patient seen and care discussed with my attending physician, Dr. You Clifford, PGY-1 Attending Provider Attestation/Addendum I attest that I was physically present for the evaluation, physical examination, lab and imaging review of the patient with the residents. I discussed the case with the residents and agree with the findings and plans of care as documented above. At bedside today, patient states he is feeling better, his pain have improved significantly. Swelling has been improving as well. Patient underwent I&D with general surgery yesterday. Wound wrapped in gauze this morning, appears dry and clean. Preliminary Gram staining from wound shows 2+ GPCs. Patient continues to be on broad-spectrum IV antibiotics. Pending wound culture results. Tisha Orta MD
[2024-06-20] MEDS: HYDROcodone/APAP 5/325 TABLET 1 TAB PO ×2 (14:25→23:51)
--- NOTE | 2024-06-20 15:48 | PC.DIETICIAN ---
Dietitian note: Recommendation proposed to physician: add Vitamin C 500mg BID daily, zinc 220mg [id number], Multivitamin-Mineral daily to ensure adequate nutrient intake and promote wound healing.
[2024-06-20] MEDS: ZINC SULFATE 220 MG CAPSULE PO (16:33)
[2024-06-20] MEDS: MULTIVITAMINS TABLET 1 TAB PO (16:33)
[2024-06-20] MEDS: ASCORBIC ACID 250 MG TABLET 500 MG PO (20:02)
[2024-06-20] MEDS: MORPHINE SULF INJ 10 MG/ML VIAL 5 MG IVP (20:02)
[2024-06-21] VITALS (9 sets, daily range): BP systolic 107–130; BP diastolic 68–84; PULSE 64–100; RESP 17–19; TEMP 36.2–36.4; O2SAT 93–97
[2024-06-21] MEDS: MORPHINE SULF INJ 10 MG/ML VIAL 5 MG IVP ×3 (03:51→15:23)
[2024-06-21] MEDS: PIPER/TAZO 3.375 GM PREMIX 3.375 GM/50 ML BAG IV ×3 (05:36→21:13)
[2024-06-21] MEDS: HYDROcodone/APAP 5/325 TABLET 1 TAB PO ×3 (05:49→20:37)
[2024-06-21 06:07] LABS: Basophils # (Auto) 0.1 Thou/mm3 (0.0-0.2); Basophils % (Auto) 1 % (0-2.5); Eosinophils % (Auto) 0 % (0-10); Hematocrit 33.9 % (41.0-53.0); Hemoglobin 11.6 g/dL (13.5-16.0); Immature Granulocytes % (Auto) 5 % (0-0); Immature Granulocytes Auto 0.51 Thou/mm3 (0.00-0.00); Lymphocytes # (Auto) 1.9 Thou/mm3 (1.0-4.8); Lymphocytes % (Auto) 17 % (10-50); Mean Corpuscular HGB Conc 34.2 g/dl (31.0-37.0); Mean Corpuscular Hemoglobin 29.3 pg (25.0-35.0); Mean Corpuscular Volume 86 fL (80-100); Monocytes # (Auto) 0.9 Thou/mm3 (0.0-0.8); Monocytes % (Auto) 8 % (0-12); Neutrophils # (Auto) 7.6 Thou/mm3 (1.8-7.7); Neutrophils % (Auto) 69 % (37-80); Nucleated Red Blood Cell % 0 /100 WBC (0); Platelet Count 278 Thou/mm3 (140-440); RDW Standard Deviation 40.2 fL (35.1-43.9); Red Blood Count 3.96 Miln/mm3 (4.50-5.90)
[2024-06-21 06:46] LABS: Alanine Aminotransferase 40 U/L (10-49); Albumin, Serum 3.2 gm/dL (3.5-5.0); Albumin/Globulin Ratio 1.1 (1.2-2.2); Alkaline Phosphatase 149 U/L (46-116); Anion Gap 9 (7-16); Aspartate Amino Transferase 21 U/L (0-34); BUN/Creatinine Ratio 23 Ratio (12-20); Bilirubin,Total 0.7 mg/dL (0.3-1.2); Blood Urea Nitrogen 14 mg/dL (9-23); Calcium 7.8 mg/dL (8.3-10.6); Calcium (Corrected) 8.4 mg/dL (8.5-10.1); Carbon Dioxide 28.1 mMol/L (20.0-31.0); Chloride 100 mMol/L (98-107); Creatinine (Component) 0.6 mg/dL (0.6-1.3); Estimated Creatinine Clearance 162.9 mL/min (>60); Glucose 252 mg/dL (74-106); Magnesium 1.8 mg/dL (1.6-2.6); Osmolality,Calculated 283 (275-295); Potassium 3.8 mMol/L (3.4-5.1); Sodium 137 mMol/L (136-145); Total Protein 6.2 gm/dL (5.7-8.2); Vancomycin,Trough 12.3 mcg/mL (5.0-10.0); eGFR > 60 See Note
[2024-06-21] MEDS: VANCOMYCIN/NS 1 GM IVPB 200 ML IV ×3 (07:20→21:13)
[2024-06-21] MEDS: INSULIN LISPRO (AdmeLOG) 1 UNIT/0.01 ML UNIT SC ×4 (07:49→20:41)
[2024-06-21] MEDS: MULTIVITAMINS TABLET 1 TAB PO (08:06)
[2024-06-21] MEDS: ZINC SULFATE 220 MG CAPSULE PO (08:06)
[2024-06-21] MEDS: ENOXAPARIN SOD INJ 40 MG/0.4 ML SYRINGE SC (08:06)
[2024-06-21] MEDS: ASCORBIC ACID 250 MG TABLET 500 MG PO ×2 (08:06→20:37)
[2024-06-21] MEDS: INSULIN GLARGINE (Lantus) 5 UNIT/0.05 ML (PER 5 UNITS) 23 UNIT SC (08:06)
[2024-06-21] MEDS: INSULIN GLARGINE (Lantus) 5 UNIT/0.05 ML (PER 5 UNITS) 2 UNIT SC (09:08)
[2024-06-21] MEDS: INSULIN LISPRO (AdmeLOG) 1 UNIT/0.01 ML UNIT 3 UNIT SC ×3 (09:17→17:23)
[2024-06-21] MEDS: NAPH,KPH MBDB 1 PACKET (1.5 GM) 2 PACKET PO (09:30)
--- NOTE | 2024-06-21 14:24 | ESPR_ITS ---
Documentation for date of: 06/21/24 Subjective Subjective Interval history: Patient examined at bedside today. No acute overnight events. Patient reports that he is feeling okay. He has been getting his wounds changed. No fevers overnight. Is using some pain medicines. No other complaints at this time. Exam Vital Signs Temp Pulse Resp BP Pulse Ox O2 Del Method O2 Flow Rate 97.6 F 97 18 121/80 97 Room Air 3 06/21/24 11:50 06/21/24 12:00 06/21/24 11:50 06/21/24 11:50 06/21/24 11:50 06/21/24 11:50 06/19/24 19:17 Narrative Exam General: AAOx3, NAD, Cymro-speaking male, obese HEENT: Moist mucous membranes, conjunctiva clear, EOMI, PERRLA, Cardiovascular: S1, S2, radial pulses +2 bilat, RRR Pulmonary: CTAB bilat no cough, no wheezing GI: No tenderness to light or deep palpitation, no guarding, rigidity, rebound tenderness or distension Extremities: Dressing present on right lower extremity, no active drainage, tender to palpation over right lower extremity, slightly pitting Neuro: AAOx3, no focal motor or sensory deficits in the UE or LE bilat Psych: Good judgement, thought and behavior. Cooperative Objective Labs 06/22/24 05:11 06/22/24 05:11 Labs: Laboratory Results - last 24 hr 06/21/24 05:03 WBC 11.0 H RBC 3.96 L Hgb 11.6 L Hct 33.9 L MCV 86 MCH 29.3 MCHC 34.2 RDW Std Deviation 40.2 Plt Count 278 D Neut % (Auto) 69 Lymph % (Auto) 17 [place] % (Auto) 8 Eos % (Auto) 0 Baso % (Auto) 1 Neut # (Auto) 7.6 Lymph # (Auto) 1.9 [place] # (Auto) 0.9 H Eos # (Auto) 0.0 Baso # (Auto) 0.1 Immature Gran # (Auto) 0.51 H Absolute Nucleated RBC 0.00 Immature Gran % 5 H Nucleated RBC % 0 Sodium 137 Potassium 3.8 D Chloride 100 Carbon Dioxide 28.1 Anion Gap 9 BUN 14 Creatinine 0.6 Estim Creat Clear Calc 162.9 eGFR > 60 BUN/Creatinine Ratio 23 H Glucose 252 H D Calculated Osmolality 283 Calcium 7.8 L Corrected Calcium 8.4 L Phosphorus 2.0 L Magnesium 1.8 Total Bilirubin 0.7 AST 21 ALT 40 Alkaline Phosphatase 149 H Total Protein 6.2 Albumin 3.2 L Globulin 3.0 Albumin/Globulin Ratio 1.1 L Vancomycin Trough 12.3 H Quality Measures Quality Measures none Assessment & Plan Assessment Current Active Medications: Generic Name Dose Route Start Last Admin Trade Name Freq PRN Reason Stop Dose Admin Acetaminophen 650 mg 06/18/24 09:37 Acetaminophen 325 Mg Tablet PO 07/18/24 09:36 Q6H PRN Fever >101.5 Hydrocodone Bitart/Acetaminophen 1 tab 06/20/24 11:21 06/21/24 11:43 Hydrocodone/Apap 5/325 Tablet PO 06/23/24 09:36 1 tab Q6HR PRN Administration PAIN 1-6 (mild-mod Ascorbic Acid 500 mg 06/20/24 21:00 06/21/24 08:06 Ascorbic Acid 250 Mg Tablet PO 07/20/24 20:59 500 mg BID TEMO Administration Dextrose 25 ml 06/18/24 09:43 Dextrose 50%-Water Inj 50 Ml Syringe IV 07/18/24 09:42 Q15MIN PRN BG 50-70 responsive npo pt Dextrose 50 ml 06/18/24 09:43 Dextrose 50%-Water Inj 50 Ml Syringe IV 07/18/24 09:42 Q15MIN PRN BG <50 OR BG <70 & pt unresponsive Enoxaparin Sodium 40 mg 06/19/24 09:00 06/21/24 08:06 Enoxaparin Sod Inj 40 Mg/0.4 Ml Syringe SC 07/03/24 08:59 40 mg QDAY TEMO Administration Glucagon 1 mg 06/18/24 09:43 Glucagon Inj 1 Mg Vial IM Q15MIN PRN BG <70, and no IV access Piperacillin/Tazobactam/Dextrose 3.375 gm in 50 mls @ 12.5 mls/hr 06/18/24 14:00 06/21/24 13:31 Zosyn IV 06/25/24 13:59 12.5 mls/hr Q8HR TEMO Administration Vancomycin/Sodium Chloride 200 mls @ 120 mls/hr 06/20/24 07:30 06/21/24 13:31 Vancomycin/Ns 1 Gm Ivpb IV 06/27/24 07:29 120 mls/hr Q8HR TEMO Administration Protocol Insulin Glargine 25 unit 06/22/24 09:00 Insulin Glargine (Lantus) 5 Unit/0.05 Ml (Per 5 Units) SC 07/22/24 08:59 QDAY TEMO Insulin Human Lispro 0 unit 06/19/24 21:00 06/21/24 11:34 Insulin Lispro (Admelog) 1 Unit/0.01 Ml Unit SC 07/19/24 20:59 2 unit ACHS [facility] Administration Protocol Insulin Human Lispro 3 unit 06/21/24 08:40 06/21/24 11:31 Insulin Lispro (Admelog) 1 Unit/0.01 Ml Unit SC 07/21/24 08:39 3 unit TIDWM TEMO Administration Morphine Sulfate 5 mg 06/20/24 11:21 06/21/24 09:24 Morphine Sulf Inj 10 Mg/Ml Vial IVP 06/24/24 18:31 5 mg Q4HR PRN Administration PAIN 1-6 (mild-mod Multivitamins 1 tab 06/20/24 15:55 06/21/24 08:06 Multivitamins Tablet PO 07/20/24 15:54 1 tab QDAY [facility] Administration Ondansetron HCl 4 mg 06/18/24 09:37 Ondansetron Inj 2 Mg/Ml Inj 2 Ml IV 07/18/24 09:36 Q6H PRN NAUSEA OR VOMITING Protocol Pharmacy Consult 1 each 06/18/24 09:50 Vancomycin Pharmacy To Dose 1 Each Each IV 07/18/24 09:49 QDAY PRN consult Zinc Sulfate 220 mg 06/20/24 15:55 06/21/24 08:06 Zinc Sulfate 220 Mg Capsule PO 07/04/24 15:54 220 mg QDAY [facility] Administration Plan Assessment Patient is a 49 years old male with past medical history of diabetes and high blood pressure who presented to the ED with swelling of right lower limb. Found to have cellulitis and abscess of right lower extremity. #Right leg cellulitis #Right foot abscess, s/p I&D Post-operative day one #Abscess of R popliteal region, s/p I&D Post-operative day one #Diabetic foot Patient presented with pain, swelling, erythema, blisters with discharge on right leg On presentation, patient had a WBC count of 14.6 with neutrophilic predominance, ESR 86, CRP more than 10 and procalcitonin 0.69 Ankle x-ray shows prominent bimalleolar soft tissue swelling as well as soft tissue swelling on the dorsum of the foot; soft tissue vascular calcification MRI of right foot shows 7 x 5 x 1.5 cm soft tissue abscess on dorsum of the foot, negative for osteomyelitis or gas gangrene Blood cultures no growth after 2 days Abscess initial culture shows 2 white blood cells and +2 GPC on Gram stain Abscess dorsum of the right foot and popliteal region right foot drained by Dr. Gupta, General Surgery Plan: Continues to be on IV vancomycin and Zosyn Follow-up MRSA nares WBC count improving Pending abscess culture General Surgery consulted, appreciate recs Wound care following Analgesic regimen #Type 2 diabetes mellitus Patient had a blood glucose of 385 and hemoglobin A1c 8.0 on presentation Does not use insulin at home Plan: Lantus 25 units Lispro 3 units AC SSI Hypoglycemia protocol in place, frequent glucose checks #Hypertension Patient's blood pressure is currently controlled, we will start antihypertensives if it starts increasing #Health Maintenance Disposition: MedSurg DVT prophylaxis: Lovenox GI prophylaxis: Not indicated at this time Diet: Carb low CODE STATUS: Full code Patient seen and care discussed with my attending physician, Dr. Pacheco Clifford, PGY-1 Attending Provider Attestation/Addendum I have examined the patient, reviewed labs and imaging findings, discussed the case with the resident(s), and reviewed entered orders. I agree with the plan of care as outlined in this note. Dr. Pacheco MD
[2024-06-22] VITALS (13 sets, daily range): BP systolic 112–142; BP diastolic 72–90; PULSE 75–103; RESP 16–97; TEMP 36.1–37; O2SAT 95–97
[2024-06-22] MEDS: MORPHINE SULF INJ 10 MG/ML VIAL 5 MG IVP ×3 (01:07→14:17)
[2024-06-22] MEDS: VANCOMYCIN/NS 1 GM IVPB 200 ML IV ×2 (05:08→13:21)
[2024-06-22] MEDS: PIPER/TAZO 3.375 GM PREMIX 3.375 GM/50 ML BAG IV ×2 (05:08→13:21)
[2024-06-22] MEDS: HYDROcodone/APAP 5/325 TABLET 1 TAB PO ×3 (05:31→20:49)
[2024-06-22 05:43] LABS: Basophils # (Auto) 0.1 Thou/mm3 (0.0-0.2); Basophils % (Auto) 1 % (0-2.5); Eosinophils % (Auto) 0 % (0-10); Hematocrit 34.1 % (41.0-53.0); Hemoglobin 11.5 g/dL (13.5-16.0); Immature Granulocytes % (Auto) 4 % (0-0); Immature Granulocytes Auto 0.44 Thou/mm3 (0.00-0.00); Lymphocytes # (Auto) 1.9 Thou/mm3 (1.0-4.8); Lymphocytes % (Auto) 19 % (10-50); Mean Corpuscular HGB Conc 33.7 g/dl (31.0-37.0); Mean Corpuscular Hemoglobin 29.4 pg (25.0-35.0); Mean Corpuscular Volume 87 fL (80-100); Monocytes # (Auto) 0.8 Thou/mm3 (0.0-0.8); Monocytes % (Auto) 8 % (0-12); Neutrophils # (Auto) 6.9 Thou/mm3 (1.8-7.7); Neutrophils % (Auto) 68 % (37-80); Nucleated Red Blood Cell % 0 /100 WBC (0); Platelet Count 289 Thou/mm3 (140-440); RDW Standard Deviation 41.7 fL (35.1-43.9); Red Blood Count 3.91 Miln/mm3 (4.50-5.90); White Blood Count 10.2 Thou/mm3 (3.8-10.6)
[2024-06-22 06:07] LABS: Alanine Aminotransferase 36 U/L (10-49); Albumin, Serum 3.1 gm/dL (3.5-5.0); Alkaline Phosphatase 142 U/L (46-116); Anion Gap 7 (7-16); Aspartate Amino Transferase 19 U/L (0-34); BUN/Creatinine Ratio 18 Ratio (12-20); Bilirubin,Total 0.7 mg/dL (0.3-1.2); Blood Urea Nitrogen 11 mg/dL (9-23); Calcium 7.7 mg/dL (8.3-10.6); Calcium (Corrected) 8.4 mg/dL (8.5-10.1); Carbon Dioxide 29.7 mMol/L (20.0-31.0); Chloride 99 mMol/L (98-107); Creatinine (Component) 0.6 mg/dL (0.6-1.3); Estimated Creatinine Clearance 162.9 mL/min (>60); Globulin 3.2 gm/dL (2.3-3.5); Glucose 285 mg/dL (74-106); Magnesium 1.7 mg/dL (1.6-2.6); Osmolality,Calculated 281 (275-295); Phosphorous 2.7 mg/dL (2.4-5.1); Potassium 4.5 mMol/L (3.4-5.1); Sodium 136 mMol/L (136-145); Total Protein 6.3 gm/dL (5.7-8.2); eGFR > 60 See Note
[2024-06-22] MEDS: INSULIN LISPRO (AdmeLOG) 1 UNIT/0.01 ML UNIT SC ×4 (08:06→20:45)
[2024-06-22] MEDS: INSULIN LISPRO (AdmeLOG) 1 UNIT/0.01 ML UNIT 3 UNIT SC (08:08)
--- NOTE | 2024-06-22 08:21 | PC.NURSE ---
Order for 4 units lispro not given, student already gave 3 units of lispro prior to new order. Called and informed ole Chinchilla to start 4 units at lunch.
[2024-06-22] MEDS: ZINC SULFATE 220 MG CAPSULE PO (08:31)
[2024-06-22] MEDS: ENOXAPARIN SOD INJ 40 MG/0.4 ML SYRINGE SC (08:31)
[2024-06-22] MEDS: ASCORBIC ACID 250 MG TABLET 500 MG PO ×2 (08:31→20:49)
[2024-06-22] MEDS: INSULIN GLARGINE (Lantus) 5 UNIT/0.05 ML (PER 5 UNITS) 30 UNIT SC (08:31)
[2024-06-22] MEDS: MULTIVITAMINS TABLET 1 TAB PO (08:31)
--- NOTE | 2024-06-22 10:04 | PC.SS ---
Follow up note: Per Wound Care NurseGinger she sent a referral to [facility] and she is also recommending HH.
--- NOTE | 2024-06-22 10:18 | PC.SS ---
Late note 06-21-24: SS met with patient regarding his d/c plan. Pt is alert/oriented. Pt was admitted for Cullulitis. Pt confirmed demographic and contact information is correct on facesheet. Pt resides with and son. Pt ambulates independently without assistance or DME. Pt is ok with all ADLs. Pt named his , Hedy Arzola medical decision maker if he is unable. Patient?s choice is to return home upon d/c. Pt states he is diabetic, has glucometer, and test strips. Pt states he followed up with PCP 3 months ago. D/C plan: Return home Next of Kin: Hedy Simmons, , phone# [phone] PCP: Dr. Esperanza Frances Address: Correct on facesheet
[2024-06-22] MEDS: INSULIN LISPRO (AdmeLOG) 1 UNIT/0.01 ML UNIT 4 UNIT SC ×2 (11:52→16:56)
--- NOTE | 2024-06-22 14:00 | PC.WOUND ---
Winston RN at bedside, with pt screaming and hollering in pain despite being premedicated with PO rx. Dr. Bergman and IM team made aware of pain. Will hold discharge and order IV pain rx for dressing changes. Spoke with pt at bedside with Elsie YOO for translation, expressing my concerns of inability to tolerate wound care and plan to discharge home or if behavior helps to cope with pain. Pt expressed he his able to handle the pain of dressing changes, that yelling and screaming helps him to get through the event, he will be able to handle care by family at home.
--- NOTE | 2024-06-22 14:26 | PC.SS ---
has called the [facility]ound [facility] to schedule pt an appointment for Monday June 24, 2024 at 9:15am. has provided pt with [facility] which contains appointment time, date, and location. Home Health is also being arranged by transfer nurse.
--- NOTE | 2024-06-22 14:45 | ESPR_ITS ---
<Statement entered by Ashley Singh MD - 06/23/24 07:47> Patient was seen and examined at bedside, agree on the assessment and plan on this note - Patient's plan and care discussed with my attending, Dr. Pacheco Singh MD Internal Medicine PGY-2 Documentation for date of: 06/22/24 Subjective Subjective Interval history: Pt examined at bedside today. No acute overnight events. Pt reports his pain is minimal at rest, however when he has dressing changes, he experiences extreme pain. He denies any fever or chills. No other complaints at this time. Exam Vital Signs Temp Pulse Resp BP Pulse Ox O2 Del Method O2 Flow Rate 98.0 F 92 20 128/82 97 Room Air 3 06/22/24 11:15 06/22/24 11:21 06/22/24 11:15 06/22/24 11:15 06/22/24 11:15 06/22/24 11:15 06/19/24 19:17 Narrative Exam General: AAOx3, NAD, Welsh-speaking male, obese HEENT: Moist mucous membranes, conjunctiva clear, EOMI, PERRLA, Cardiovascular: S1, S2, radial pulses +2 bilat, RRR Pulmonary: CTAB bilat no cough, no wheezing GI: No tenderness to light or deep palpitation, no guarding, rigidity, rebound tenderness or distension Extremities: Dressing present on right lower extremity, no active drainage, tender to palpation over right lower extremity, slightly pitting Neuro: AAOx3, no focal motor or sensory deficits in the UE or LE bilat Psych: Good judgement, thought and behavior. Cooperative Objective Labs 06/23/24 05:30 06/23/24 05:30 Labs: Laboratory Results - last 24 hr 06/22/24 05:11 WBC 10.2 RBC 3.91 L Hgb 11.5 L Hct 34.1 L MCV 87 MCH 29.4 MCHC 33.7 RDW Std Deviation 41.7 Plt Count 289 Neut % (Auto) 68 Lymph % (Auto) 19 [place] % (Auto) 8 Eos % (Auto) 0 Baso % (Auto) 1 Neut # (Auto) 6.9 Lymph # (Auto) 1.9 [place] # (Auto) 0.8 Eos # (Auto) 0.0 Baso # (Auto) 0.1 Immature Gran # (Auto) 0.44 H Absolute Nucleated RBC 0.00 Immature Gran % 4 H Nucleated RBC % 0 Sodium 136 Potassium 4.5 D Chloride 99 Carbon Dioxide 29.7 Anion Gap 7 BUN 11 Creatinine 0.6 Estim Creat Clear Calc 162.9 eGFR > 60 BUN/Creatinine Ratio 18 Glucose 285 H Calculated Osmolality 281 Calcium 7.7 L Corrected Calcium 8.4 L Phosphorus 2.7 Magnesium 1.7 Total Bilirubin 0.7 AST 19 ALT 36 Alkaline Phosphatase 142 H Total Protein 6.3 Albumin 3.1 L Globulin 3.2 Albumin/Globulin Ratio 1.0 L Quality Measures Quality Measures none Assessment & Plan Assessment Current Active Medications: Generic Name Dose Route Start Last Admin Trade Name Freq PRN Reason Stop Dose Admin Acetaminophen 650 mg 06/22/24 09:03 Acetaminophen 325 Mg Tablet PO 07/18/24 09:36 Q6H PRN Fever >101.5 or pain 1-3 Protocol Hydrocodone Bitart/Acetaminophen 1 tab 06/22/24 09:03 06/22/24 13:20 Hydrocodone/Apap 5/325 Tablet PO 06/23/24 09:36 1 tab Q6HR PRN Administration Pain 4-6 (Mild-Mod Ascorbic Acid 500 mg 06/20/24 21:00 06/22/24 08:31 Ascorbic Acid 250 Mg Tablet PO 07/20/24 20:59 500 mg BID TEMO Administration Dextrose 25 ml 06/18/24 09:43 Dextrose 50%-Water Inj 50 Ml Syringe IV 07/18/24 09:42 Q15MIN PRN BG 50-70 responsive npo pt Dextrose 50 ml 06/18/24 09:43 Dextrose 50%-Water Inj 50 Ml Syringe IV 07/18/24 09:42 Q15MIN PRN BG <50 OR BG <70 & pt unresponsive Enoxaparin Sodium 40 mg 06/19/24 09:00 06/22/24 08:31 Enoxaparin Sod Inj 40 Mg/0.4 Ml Syringe SC 07/03/24 08:59 40 mg QDAY TEMO Administration Glucagon 1 mg 06/18/24 09:43 Glucagon Inj 1 Mg Vial IM Q15MIN PRN BG <70, and no IV access Piperacillin/Tazobactam/Dextrose 3.375 gm in 50 mls @ 12.5 mls/hr 06/18/24 14:00 06/22/24 13:21 Zosyn IV 06/25/24 13:59 12.5 mls/hr Q8HR TEMO Administration Vancomycin/Sodium Chloride 200 mls @ 120 mls/hr 06/20/24 07:30 06/22/24 13:21 Vancomycin/Ns 1 Gm Ivpb IV 06/27/24 07:29 120 mls/hr Q8HR TEMO Administration Protocol Insulin Glargine 30 unit 06/22/24 09:00 06/22/24 08:31 Insulin Glargine (Lantus) 5 Unit/0.05 Ml (Per 5 Units) SC 07/22/24 08:59 30 unit QDAY TEMO Administration Insulin Human Lispro 0 unit 06/19/24 21:00 06/22/24 11:53 Insulin Lispro (Admelog) 1 Unit/0.01 Ml Unit SC 07/19/24 20:59 3 unit ACHS TEMO Administration Protocol Insulin Human Lispro 4 unit 06/22/24 08:15 06/22/24 11:52 Insulin Lispro (Admelog) 1 Unit/0.01 Ml Unit SC 07/22/24 08:14 4 unit TIDWM TEMO Administration Morphine Sulfate 5 mg 06/22/24 14:09 06/22/24 14:17 Morphine Sulf Inj 10 Mg/Ml Vial IVP 06/27/24 14:06 5 mg Q4HR PRN Administration use only w/dressing changes Multivitamins 1 tab 06/20/24 15:55 06/22/24 08:31 Multivitamins Tablet PO 07/20/24 15:54 1 tab QDAY TEMO Administration Ondansetron HCl 4 mg 06/18/24 09:37 Ondansetron Inj 2 Mg/Ml Inj 2 Ml IV 07/18/24 09:36 Q6H PRN NAUSEA OR VOMITING Protocol Pharmacy Consult 1 each 06/18/24 09:50 Vancomycin Pharmacy To Dose 1 Each Each IV 07/18/24 09:49 QDAY PRN consult Zinc Sulfate 220 mg 06/20/24 15:55 06/22/24 08:31 Zinc Sulfate 220 Mg Capsule PO 07/04/24 15:54 220 mg QDAY TEMO Administration Plan Assessment Patient is a 49 years old male with past medical history of diabetes and high blood pressure who presented to the ED with swelling of right lower limb. Found to have cellulitis and abscess of right lower extremity. #Right leg cellulitis #Right foot abscess, s/p I&D Post-operative day 3 #Abscess of R popliteal region, s/p I&D Post-operative day 3 #Diabetic foot Patient presented with pain, swelling, erythema, blisters with discharge on right leg On presentation, patient had a WBC count of 14.6 with neutrophilic predominance, ESR 86, CRP more than 10 and procalcitonin 0.69 Ankle x-ray shows prominent bimalleolar soft tissue swelling as well as soft tissue swelling on the dorsum of the foot; soft tissue vascular calcification MRI of right foot shows 7 x 5 x 1.5 cm soft tissue abscess on dorsum of the foot, negative for osteomyelitis or gas gangrene Blood cultures no growth after 2 days MRSA negative Abscess culture shows pansensitive Staph Aureus Abscess dorsum of the right foot and popliteal region right foot drained by Dr. Gupta, General Surgery Patient experiencing extreme pain when there are dressing changes Due to patient's pain, we will keep patient 1 more day and try to de-escalate pain management No white count today Patient will have home health upon discharge Plan: Deescalate abx to Rocephin 1 g IV General Surgery consulted, appreciate recs Wound care following [place] 5 every 6 hours as needed, morphine only with dressing changes # Nfe-[id number] type 2 diabetes mellitus Patient had a blood glucose of 385 and hemoglobin A1c 8.0 on presentation Does not use insulin at home Plan: Lantus 30 units Lispro 4 units AC SSI Hypoglycemia protocol in place, frequent glucose checks #Hypertension Patient's blood pressure is currently controlled, we will start antihypertensives if it starts increasing #Health Maintenance Disposition: MedSurg DVT prophylaxis: Lovenox GI prophylaxis: Not indicated at this time Diet: Carb low CODE STATUS: Full code Patient seen and care discussed with my attending physician, Dr. Bergman and my senior resident, Dr. Francisco Clifford, PGY-1 Attending Provider Attestation/Addendum I have examined the patient, reviewed labs and imaging findings, discussed the case with the resident(s), and reviewed entered orders. I agree with the plan of care as outlined in this note, with these additional summaries/recommendations: Patient seen at bedside. No acute overnight events. Patient was originally planned for discharge today with oral antibiotic course for lower extremity abscesses/cellulitis. Unfortunately patient has continued to have intractable pain requiring up to 5 mg IV morphine at a time. We will attempt to wean IV pain medicines today and if able to be controlled with oral regimen then anticipate discharge in the next 24 to 48 hours. Wound care following and home health ordered to arrange home wound care. Continue basal and bolus insulin for diabetes mellitus type 2. A1c 8.0%. Repeat hematology and chemistry panel in AM. Please see residents note for additional details and management. Dr. Pacheco MD
--- NOTE | 2024-06-22 15:51 | PC.CM ---
Addendum entered by Joanie Iverson RN 06/22/24 18:40: [facility] answered yes on [employer]. When I reached out to them they said they could not accept patient because they are in the [place] area and they do not come out this far. They declined patient. [facility] is going to reach out to insurance to see if they can accept patient. Original Note: I let the doctor know we may not have an agency to follow patient due to patients insurance. the doctor let me know patient will not be discharged today due to needing pain management. Doctor was going to speak to the wound nurse to see if they could send patient to the wound clinic, if we are unable to secure a home health agency.
--- NOTE | 2024-06-22 16:07 | PC.NURSE ---
Patient's at bedside. Per patient and son will be the person performing wound care but is unable to come in for education. RN educated patient and on daily wound care as per MD orders. Patient and verbalizes understanding on daily wound care. Patient states son has been present during prior dressing changes and has an idea of what to do. Patient and has no other questions regarding wound care.
--- NOTE | 2024-06-22 18:10 | PD.SURPROG ---
Documentation for date of: 06/22/24 Subjective Subjective Brief History: Patient was in his usual health until a week ago when he started developing swelling over the right lower extremity. Denies any history of injury but he has a poorly controlled diabetes. Then he developed a blister over the dorsum of the right foot as well as behind the popliteal area. Those blisters ruptured and he started having some drainage but he is not sure whether it is pus. He is having increasing pain over the right lower extremity. Because of the increasing swelling and drainage he came to the emergency room. Patient denies having such problems in the past. The problem got worse from last Thursday. Other medical problem consist of diabetes hypertension cholesterolemia and obesity. He had a history of cellulitis and abscess of the face in the past Narrative: The patient's right lower extremity swelling is getting better Exam Vital Signs Temp Pulse Resp BP Pulse Ox O2 Del Method O2 Flow Rate 97.8 F 80 16 130/81 96 Room Air 3 06/22/24 16:00 06/22/24 16:00 06/22/24 16:06/22/24 16:06/22/24 16:06/22/24 16:00 06/19/24 19:17 Vital signs are normal Routine Extremities Exam Comments: Examination of the right foot showed decreased swelling and there is no further purulent drainage while changing the dressing Assessment & Plan Plan Plan: Patient will be discharged whenever he gets clinically better but will require dressing change as an outpatient for a while Procedures Procedures Incision and drainage of the abscess dorsum of the foot with debridement Incision and drainage of the abscess behind the right knee in the popliteal fossa.
[2024-06-23] VITALS (9 sets, daily range): BP systolic 117–147; BP diastolic 72–88; PULSE 75–90; RESP 16–92; TEMP 35.9–37.3; O2SAT 93–97
[2024-06-23] MEDS: HYDROcodone/APAP 5/325 TABLET 1 TAB PO ×3 (03:19→19:03)
[2024-06-23 06:18] LABS: Basophils % (Auto) 1 % (0-2.5); Eosinophils % (Auto) 0 % (0-10); Hematocrit 31.8 % (41.0-53.0); Hemoglobin 10.8 g/dL (13.5-16.0); Immature Granulocytes % (Auto) 5 % (0-0); Immature Granulocytes Auto 0.38 Thou/mm3 (0.00-0.00); Lymphocytes # (Auto) 1.6 Thou/mm3 (1.0-4.8); Lymphocytes % (Auto) 20 % (10-50); Mean Corpuscular Hemoglobin 29.5 pg (25.0-35.0); Mean Corpuscular Volume 87 fL (80-100); Monocytes # (Auto) 0.8 Thou/mm3 (0.0-0.8); Monocytes % (Auto) 10 % (0-12); Neutrophils # (Auto) 5.2 Thou/mm3 (1.8-7.7); Neutrophils % (Auto) 65 % (37-80); Nucleated Red Blood Cell % 0 /100 WBC (0); Platelet Count 256 Thou/mm3 (140-440); RDW Standard Deviation 41.1 fL (35.1-43.9); Red Blood Count 3.66 Miln/mm3 (4.50-5.90); White Blood Count 8.1 Thou/mm3 (3.8-10.6)
[2024-06-23 06:24] LABS: Alanine Aminotransferase 27 U/L (10-49); Albumin, Serum 2.9 gm/dL (3.5-5.0); Albumin/Globulin Ratio 0.9 (1.2-2.2); Alkaline Phosphatase 121 U/L (46-116); Anion Gap 7 (7-16); Aspartate Amino Transferase 17 U/L (0-34); BUN/Creatinine Ratio 18 Ratio (12-20); Bilirubin,Total 0.8 mg/dL (0.3-1.2); Blood Urea Nitrogen 9 mg/dL (9-23); Calcium 7.6 mg/dL (8.3-10.6); Calcium (Corrected) 8.5 mg/dL (8.5-10.1); Carbon Dioxide 28.4 mMol/L (20.0-31.0); Chloride 102 mMol/L (98-107); Creatinine (Component) 0.5 mg/dL (0.6-1.3); Estimated Creatinine Clearance 195.4 mL/min (>60); Globulin 3.1 gm/dL (2.3-3.5); Glucose 218 mg/dL (74-106); Magnesium 1.7 mg/dL (1.6-2.6); Osmolality,Calculated 279 (275-295); Potassium 3.8 mMol/L (3.4-5.1); Sodium 137 mMol/L (136-145); Vancomycin,Trough 4.1 mcg/mL (5.0-10.0); eGFR > 60 See Note
[2024-06-23] MEDS: INSULIN LISPRO (AdmeLOG) 1 UNIT/0.01 ML UNIT 4 UNIT SC (07:43)
[2024-06-23] MEDS: INSULIN LISPRO (AdmeLOG) 1 UNIT/0.01 ML UNIT SC ×3 (07:44→20:32)
[2024-06-23] MEDS: ASCORBIC ACID 250 MG TABLET 500 MG PO ×2 (08:23→20:32)
[2024-06-23] MEDS: ENOXAPARIN SOD INJ 40 MG/0.4 ML SYRINGE SC (08:23)
[2024-06-23] MEDS: ZINC SULFATE 220 MG CAPSULE PO (08:23)
[2024-06-23] MEDS: cefTRIAXone/D5w 1gm IV premix 1 GM/50 ML BAG IV (08:23)
[2024-06-23] MEDS: MULTIVITAMINS TABLET 1 TAB PO (08:23)
[2024-06-23] MEDS: INSULIN GLARGINE (Lantus) 5 UNIT/0.05 ML (PER 5 UNITS) 35 UNIT SC (08:28)
[2024-06-23] MEDS: INSULIN LISPRO (AdmeLOG) 1 UNIT/0.01 ML UNIT 6 UNIT SC ×2 (11:13→17:41)
--- NOTE | 2024-06-23 11:29 | PC.CC ---
Addendum entered by Gabriel Parada RN 06/23/24 12:07: spoke to pt Hedy and informed all the HH agencies declined the pt. Follow up with wound clinical to make an appointment. Addendum entered by Gabriel Parada RN 06/23/24 12:07: 15 HH agencies declined the pt. Unable to setup HH at this point. Called and informed SS Yamileth. Plan is patient to follow at wound clinic. Addendum entered by Gabriel Parada RN 06/23/24 12:07: [facility] responded on [employer] We are not contracted with the insurance. We will not be able to accept. Original Note: 14 HH agencies declined the pt. [facility] is considering and responded Our insurance team will call the insurance to check benefits and we will update you. I informed SS and she stated pt will also be following the wound clinic.
--- NOTE | 2024-06-23 11:59 | PD.SURPROG ---
Documentation for date of: 06/23/24 Subjective Subjective Brief History: Patient was in his usual health until a week ago when he started developing swelling over the right lower extremity. Denies any history of injury but he has a poorly controlled diabetes. Then he developed a blister over the dorsum of the right foot as well as behind the popliteal area. Those blisters ruptured and he started having some drainage but he is not sure whether it is pus. He is having increasing pain over the right lower extremity. Because of the increasing swelling and drainage he came to the emergency room. Patient denies having such problems in the past. The problem got worse from last Thursday. Other medical problem consist of diabetes hypertension cholesterolemia and obesity. He had a history of cellulitis and abscess of the face in the past Exam Vital Signs Temp Pulse Resp BP Pulse Ox O2 Del Method O2 Flow Rate 96.7 F L 83 16 135/88 H 97 Room Air 3 06/23/24 08:00 06/23/24 09:26 06/23/24 08:00 06/23/24 08:00 06/23/24 08:00 06/23/24 08:00 06/19/24 19:17 Assessment & Plan Assessment Additional comments: Impression: Slight improvement in her abdominal finding but still has tenderness in the left lower quadrant and suprapubic area Plan Plan: We shall wait for the CT finding to make sure the abscess is not enlarging. This is too early to see a significant change but before discharge if he would like to know the status of the abscess Procedures Procedures Incision and drainage of the abscess dorsum of the foot with debridement Incision and drainage of the abscess behind the right knee in the popliteal fossa.
[2024-06-23] MEDS: MORPHINE SULF INJ 10 MG/ML VIAL 5 MG IVP (14:14)
--- NOTE | 2024-06-23 14:42 | PD.RESPRO ---
Documentation for date of: 06/23/24 Subjective Subjective Interval history: Patient examined at bedside today. No acute overnight events. Patient reports that his pain is worst when he has a dressing change. He reports minimal pain at rest. He does notice that his leg appears to be a bit swollen. He has not had any fevers or chills. He is 20 g and go home. He does endorse that he knows how to do his dressing changes and that his knows after being instructed on how to do so. No other complaints at this time. Exam Vital Signs Temp Pulse Resp BP Pulse Ox O2 Del Method O2 Flow Rate 98.3 F 87 18 128/86 H 96 Room Air 3 06/23/24 12:00 06/23/24 13:50 06/23/24 13:50 06/23/24 12:00 06/23/24 12:00 06/23/24 12:00 06/19/24 19:17 Narrative Exam General: AAOx3, NAD, Bermudian-speaking male, obese HEENT: Moist mucous membranes, conjunctiva clear, EOMI, PERRLA, Cardiovascular: S1, S2, radial pulses +2 bilat, RRR Pulmonary: CTAB bilat no cough, no wheezing GI: No tenderness to light or deep palpitation, no guarding, rigidity, rebound tenderness or distension Extremities: Right lower extremity appears to be a bit edematous and erythematous, some dried blood near dressing, no active drainage of pus, tender to palpation over right lower extremity, Neuro: AAOx3, no focal motor or sensory deficits in the UE or LE bilat Psych: Good judgement, thought and behavior. Cooperative Objective Labs 06/24/24 04:20 06/24/24 04:20 Labs: Laboratory Results - last 24 hr 06/23/24 05:30 WBC 8.1 RBC 3.66 L Hgb 10.8 L Hct 31.8 L MCV 87 MCH 29.5 MCHC 34.0 RDW Std Deviation 41.1 Plt Count 256 D Neut % (Auto) 65 Lymph % (Auto) 20 Sweet [place] % (Auto) 10 Eos % (Auto) 0 Baso % (Auto) 1 Neut # (Auto) 5.2 Lymph # (Auto) 1.6 Sweet [place] # (Auto) 0.8 Eos # (Auto) 0.0 Baso # (Auto) 0.0 Immature Gran # (Auto) 0.38 H Absolute Nucleated RBC 0.00 Immature Gran % 5 H Nucleated RBC % 0 Sodium 137 Potassium 3.8 D Chloride 102 Carbon Dioxide 28.4 Anion Gap 7 BUN 9 Creatinine 0.5 L Estim Creat Clear Calc 195.4 eGFR > 60 BUN/Creatinine Ratio 18 Glucose 218 H D Calculated Osmolality 279 Calcium 7.6 L Corrected Calcium 8.5 Magnesium 1.7 Total Bilirubin 0.8 AST 17 ALT 27 Alkaline Phosphatase 121 H D Total Protein 6.0 Albumin 2.9 L Globulin 3.1 Albumin/Globulin Ratio 0.9 L Vancomycin Trough 4.1 L Quality Measures Quality Measures none Assessment & Plan Assessment Current Active Medications: Generic Name Dose Route Start Last Admin Trade Name Freq PRN Reason Stop Dose Admin Acetaminophen 650 mg 06/22/24 09:03 Acetaminophen 325 Mg Tablet PO 07/18/24 09:36 Q6H PRN Fever >101.5 or pain 1-3 Protocol Ascorbic Acid 500 mg 06/20/24 21:00 06/23/24 08:23 Ascorbic Acid 250 Mg Tablet PO 07/20/24 20:59 500 mg BID TEMO Administration Dextrose 25 ml 06/18/24 09:43 Dextrose 50%-Water Inj 50 Ml Syringe IV 07/18/24 09:42 Q15MIN PRN BG 50-70 responsive npo pt Dextrose 50 ml 06/18/24 09:43 Dextrose 50%-Water Inj 50 Ml Syringe IV 07/18/24 09:42 Q15MIN PRN BG <50 OR BG <70 & pt unresponsive Enoxaparin Sodium 40 mg 06/19/24 09:00 06/23/24 08:23 Enoxaparin Sod Inj 40 Mg/0.4 Ml Syringe SC 07/03/24 08:59 40 mg QDAY TEMO Administration Glucagon 1 mg 06/18/24 09:43 Glucagon Inj 1 Mg Vial IM Q15MIN PRN BG <70, and no IV access Ceftriaxone Sodium/Dextrose 1 gm in 50 mls @ 100 mls/hr 06/23/24 09:00 06/23/24 08:23 Rocephin/D5w 1gm Iv Premix IV 06/30/24 08:59 100 mls/hr QDAY TEMO Administration Insulin Glargine 35 unit 06/23/24 09:00 06/23/24 08:28 Insulin Glargine (Lantus) 5 Unit/0.05 Ml (Per 5 Units) SC 07/23/24 08:59 35 unit QDAY TEMO Administration Insulin Human Lispro 0 unit 06/19/24 21:00 06/23/24 11:13 Insulin Lispro (Admelog) 1 Unit/0.01 Ml Unit SC 07/19/24 20:59 3 unit ACHS TEMO Administration Protocol Insulin Human Lispro 6 unit 06/23/24 12:00 06/23/24 11:13 Insulin Lispro (Admelog) 1 Unit/0.01 Ml Unit SC 07/23/24 11:59 6 unit TIDWM TEMO Administration Morphine Sulfate 2.5 mg 06/23/24 14:32 Morphine Sulf Inj 10 Mg/Ml Vial IVP 06/27/24 14:06 Q4HR PRN use only w/dressing changes Multivitamins 1 tab 06/20/24 15:55 06/23/24 08:23 Multivitamins Tablet PO 07/20/24 15:54 1 tab QDAY TEMO Administration Ondansetron HCl 4 mg 06/18/24 09:37 Ondansetron Inj 2 Mg/Ml Inj 2 Ml IV 07/18/24 09:36 Q6H PRN NAUSEA OR VOMITING Protocol Zinc Sulfate 220 mg 06/20/24 15:55 06/23/24 08:23 Zinc Sulfate 220 Mg Capsule PO 07/04/24 15:54 220 mg QDAY TEMO Administration Plan Assessment Patient is a 49 years old male with past medical history of diabetes and high blood pressure who presented to the ED with swelling of right lower limb. Found to have cellulitis and abscess of right lower extremity. #Right leg cellulitis #Right foot abscess, s/p I&D Post-operative day 4 #Abscess of R popliteal region, s/p I&D Post-operative day 4 #Diabetic foot Patient presented with pain, swelling, erythema, blisters with discharge on right leg On presentation, patient had a WBC count of 14.6 with neutrophilic predominance, ESR 86, CRP more than 10 and procalcitonin 0.69 Ankle x-ray shows prominent bimalleolar soft tissue swelling as well as soft tissue swelling on the dorsum of the foot; soft tissue vascular calcification MRI of right foot shows 7 x 5 x 1.5 cm soft tissue abscess on dorsum of the foot, negative for osteomyelitis or gas gangrene Blood cultures no growth after 2 days MRSA negative Abscess culture shows pansensitive Staph Aureus Abscess dorsum of the right foot and popliteal region right foot drained by Dr. Gupta, General Surgery Patient experiencing extreme pain when there are dressing changes No white count today Patient denied home health per social organization professor, will have to have strict wound care follow-up and patient will need to continue with his own dressing changes and have family assist General Surgery recommends to continue to keep patient in the hospital as patient's leg still appears to be edematous and is extremely tender to palpation during dressing changes Plan: Rocephin 1 g IV General Surgery consulted, appreciate recs Wound care following Steger 5 every 6 hours as needed, morphine 2.5 mg IV only with dressing changes #Dtq-qiahjpo-deowxtxbw type 2 diabetes mellitus Patient had a blood glucose of 385 and hemoglobin A1c 8.0 on presentation Does not use insulin at home Plan: Lantus 35 units Lispro 6 units AC SSI Hypoglycemia protocol in place, frequent glucose checks #Hypertension Patient's blood pressure is currently controlled, we will start antihypertensives if it starts increasing #Normocytic anemia 10.8 hemoglobin today Plan: ? Continue trending with CBC #Health Maintenance Disposition: MedSurg DVT prophylaxis: Lovenox GI prophylaxis: Not indicated at this time Diet: Carb low CODE STATUS: Full code Patient seen and care discussed with my attending physician, Dr. Pacheco Clifford, PGY-1 Attending Provider Attestation/Addendum I have examined the patient, reviewed labs and imaging findings, discussed the case with the resident(s), and reviewed entered orders. I agree with the plan of care as outlined in this note, with these additional summaries/recommendations: Patient seen at bedside. No acute overnight events. Patient still endorsing significant pain during dressing changes requiring IV morphine. Patient was examined at bedside with general surgery and we will keep patient 1 more day given he still has significant swelling, erythema, and minimal discharge from abscess sites. We are working with case management to arrange close outpatient follow-up with wound care center as patient is not a candidate for home health. Continue antibiotics. Continue insulin sliding scale for diabetes mellitus type 2. Dr. Pacheco MD
--- NOTE | 2024-06-23 16:00 | PC.SS ---
SS has called Wound Clinic and spoke to Elia to change patient's appointment to Thursday06-27-24 at 9:15am due to pt still being hospitalized. SS met with pt to inform him and called his , Hedy to inform her of new appointment time and date.
[2024-06-24] VITALS: BP 139/91; PULSE 90; RESP 16; TEMP 36.6; O2SAT 94
[2024-06-24] MEDS: HYDROcodone/APAP 5/325 TABLET 1 TAB PO ×2 (01:07→07:41)
[2024-06-24 04:00] VITALS: BP 136/86; PULSE 80; PULSE 82; RESP 18; TEMP 36.2; O2SAT 95
[2024-06-24 05:30] LABS: Basophils % (Auto) 1 % (0-2.5); Eosinophils % (Auto) 0 % (0-10); Hematocrit 30.8 % (41.0-53.0); Hemoglobin 10.6 g/dL (13.5-16.0); Immature Granulocytes % (Auto) 5 % (0-0); Immature Granulocytes Auto 0.36 Thou/mm3 (0.00-0.00); Lymphocytes # (Auto) 1.6 Thou/mm3 (1.0-4.8); Lymphocytes % (Auto) 20 % (10-50); Mean Corpuscular HGB Conc 34.4 g/dl (31.0-37.0); Mean Corpuscular Hemoglobin 29.3 pg (25.0-35.0); Mean Corpuscular Volume 85 fL (80-100); Monocytes # (Auto) 0.8 Thou/mm3 (0.0-0.8); Monocytes % (Auto) 10 % (0-12); Neutrophils # (Auto) 5.2 Thou/mm3 (1.8-7.7); Neutrophils % (Auto) 65 % (37-80); Nucleated Red Blood Cell % 0 /100 WBC (0); Platelet Count 293 Thou/mm3 (140-440); RDW Standard Deviation 40.6 fL (35.1-43.9); Red Blood Count 3.62 Miln/mm3 (4.50-5.90)
[2024-06-24 06:00] LABS: Alanine Aminotransferase 23 U/L (10-49); Albumin/Globulin Ratio 0.9 (1.2-2.2); Alkaline Phosphatase 112 U/L (46-116); Anion Gap 8 (7-16); Aspartate Amino Transferase 16 U/L (0-34); BUN/Creatinine Ratio 10 Ratio (12-20); Bilirubin,Total 0.7 mg/dL (0.3-1.2); Blood Urea Nitrogen 6 mg/dL (9-23); Calcium 7.7 mg/dL (8.3-10.6); Calcium (Corrected) 8.5 mg/dL (8.5-10.1); Carbon Dioxide 28.9 mMol/L (20.0-31.0); Chloride 100 mMol/L (98-107); Creatinine (Component) 0.6 mg/dL (0.6-1.3); Estimated Creatinine Clearance 162.9 mL/min (>60); Globulin 3.2 gm/dL (2.3-3.5); Glucose 224 mg/dL (74-106); Magnesium 1.7 mg/dL (1.6-2.6); Osmolality,Calculated 278 (275-295); Sodium 137 mMol/L (136-145); Total Protein 6.2 gm/dL (5.7-8.2); eGFR > 60 See Note
[2024-06-24] MEDS: INSULIN LISPRO (AdmeLOG) 1 UNIT/0.01 ML UNIT 6 UNIT SC (07:41)
[2024-06-24] MEDS: INSULIN LISPRO (AdmeLOG) 1 UNIT/0.01 ML UNIT SC ×2 (07:41→11:20)
[2024-06-24 08:00] VITALS: BP 139/86; PULSE 100; PULSE 79; RESP 18; TEMP 36.6; O2SAT 94
[2024-06-24] MEDS: INSULIN GLARGINE (Lantus) 5 UNIT/0.05 ML (PER 5 UNITS) 35 UNIT SC (08:38)
[2024-06-24] MEDS: ASCORBIC ACID 250 MG TABLET 500 MG PO (08:38)
[2024-06-24] MEDS: MULTIVITAMINS TABLET 1 TAB PO (08:38)
[2024-06-24] MEDS: ENOXAPARIN SOD INJ 40 MG/0.4 ML SYRINGE SC (08:38)
[2024-06-24] MEDS: ZINC SULFATE 220 MG CAPSULE PO (08:38)
[2024-06-24] MEDS: cefTRIAXone/D5w 1gm IV premix 1 GM/50 ML BAG IV (08:38)
--- NOTE | 2024-06-24 09:19 | PC.SS ---
Follow up note: On IV antibiotic. Pt will return home and will follow up with Wound Clinic.
[2024-06-24 11:03] VITALS: BMI 34.5
[2024-06-24] MEDS: INSULIN GLARGINE (Lantus) 5 UNIT/0.05 ML (PER 5 UNITS) 3 UNIT SC (11:19)
[2024-06-24] MEDS: INSULIN LISPRO (AdmeLOG) 1 UNIT/0.01 ML UNIT 7 UNIT SC (11:20)
--- NOTE | 2024-06-24 11:47 | XR_ITS ---
Examination: CT right lower extremity, with intravenous contrast. 2-D sagittal reconstructions. 2-D coronal reconstructions. 3-D reconstructions. Date and time of exam:June 24, 2024 1258 hours INDICATIONS: Right lower extremity swelling and drainage at the top of the foot today CTDI: vol (mGy):7.4 DLP: (mGycm):516 Technique: Multiple 1.25 mm axial sections of the right lower leg with intravenous contrast, 60 cc Isovue-370 have been obtained. 2-D sagittal and coronal reconstructions have been obtained. 3-D reconstructions have been obtained. Low dose protocols were performed. One or more of the following dose reduction techniques were used; automated exposure control, adjustment of the mA and/or KV according to patient size, use of iterative reconstruction technique. Findings: Moderate knee effusion Edema anterior to the tibia Soft tissue defect anterior ankle with subcutaneous fluid collection, mediolateral dimension 22 mm cephalad caudad dimension 43 mm, anterior posterior dimension 11 mm No lauren adjacent cortical bone destruction IMPRESSION: Large soft tissue defect anterior to the ankle Soft tissue abscess beginning anterior to the lower tibia fibula extending to the ankle, 22 x 43 x 11 mm, recommend surgical consultation
[2024-06-24 11:58] VITALS: BP 145/90; PULSE 84; RESP 16; TEMP 36.2; O2SAT 97
[2024-06-24 12:22] VITALS: PULSE 83
[2024-06-24] MEDS: MORPHINE SULF INJ 10 MG/ML VIAL 2.5 MG IVP (14:14)
--- NOTE | 2024-06-24 14:21 | ESDS_ITS ---
Planned Discharge Date 06/24/24 DS: Providers Provider Date of admission: 06/18/24 09:37 Primary care physician: JUAN Jones Admitting Provider: Tisha Orta MD Attending Provider on Admission: Juan Bergman MD Consults: 06/18/24 15:04 Consult to General Surgery Routine Comment: Foot abscess Consulting Provider: Ashleigh Alcala 06/18/24 15:39 Referral Wound Care Routine Comment: 06/19/24 08:00 Referral Wound Care Routine Comment: 06/21/24 10:39 Referral OP Wound Healing Dept Routine Comment: Instructions: Right posterior knee and dorsal foot abscess, s/p I&D with Dr. Gupta 06/18 Attending Provider on DC: Juan Bergman MD Discharging Provider: Juan Bergman MD DS: Diagnosis Problem List Completed Was Problem List Reviewed/Reconciled?: Yes Hospital Course Hospital Course Hospital course: Mukesh is a 49 years old male with PMHx of non-insulin dependent type II DM, and HTN who was admitted to [facility] on 06/18/2024 for R LE cellulitis, and, abscess in the right foot and popliteal region status post I&D. Patient had arrived to the ED with a blood pressure of 137/89 and the rest of the vitals are within normal limits. His WBC count is 14.6, hemoglobin 13.2, ESR 86, hemoglobin A1c 8.0, glucose 385, CRP more than 10, procalcitonin 0.69. His lactate is within normal limits. X-ray of the ankle was done, which did not show any lauren cortical bone destruction or fracture but showed prominent by malleolar soft tissue swelling as well as soft tissue swelling on dorsum of the foot. Patient received Melbourne and dose of vancomycin and Zosyn in the ED. We will admit the patient for management of right lower limb cellulitis. While in the hospital, MRI of right foot was obtained as well which showed a 7 x 5 x 1.5 cm soft tissue abscess in the right foot. General surgery was consulted who had assessed the patient and then determined patient had a abscess in the right popliteal region in addition to the right foot. On June 19, 2024, patient had I&D performed by general surgery, Dr. Gupta. Cultures had been sent out for the abscesses which showed MSSA. Patient was given antibiotics and patient, started on wound care, and was given pain control. Due to patient's pain management, patient's continued to stay in the hospital. Patient was taught by wound care how to change dressings in addition to his family. Patient was recommended to follow- up with wound care in which she has an appointment on June 27, 2024. He was also prescribed pain control with Melbourne and an antibiotic course for him to finish up which is Augmentin for 7 days. He also had a CT scan of his lower extremity upon discharge which showed a soft tissue abscess beginning anterior to the lower tibia fibula extending to the ankle, 22 x 43 x 11 mm. Due to the patient's clinically improving and the abscess being smaller in size we are comfortable with discharge at the time and we are recommending for patient to follow-up with wound care and his general surgeon upon discharge. Patient was to get home health wound care, however he was denied due to his insurance. Discharge instructions Follow-up with your PCP within 1 week Follow up with your surgeon, Dr. Gupta within one week, Follow-up with Wound care, you will have to go with them directly, this will occur once a week. Your appointment with them is on June 27, 2024 Perform dressing changes Finish up your antibiotic course that we are prescribing you, Augmentin twice a day for seven days Use Melbourne up to four times a day as needed for pain, however DO NOT EXCEED MORE THAN 4 TABLETS IN ONE DAY Take your medicines as prescribed Return to ER symptoms worsen or return #Right leg cellulitis #Right foot abscess, s/p I&D #Abscess of R popliteal region, s/p I&D #Diabetic foot #Ykd-pbozsaw-pkqktmipk type 2 diabetes mellitus #Hypertension #Normocytic anemia Discharge summary was reviewed with my attending Dr. Pacheco Clifford, PGY-1 Time Spent with Patient Time attestation: Total time spent providing and/or coordinating discharge services: Time spent: Greater than 30 minutes Home Health Home Health Referral Orders: 06/22/24 13:26 Home Health Referral Routine Reason For Exam: Wound Care Home-Bound The patient must either because of illness or injury, need the aid of supportive devices such as crutches, canes, wheelchairs, and walkers; the use of special transportation; or the assistance of another person in order to leave their place of residence; OR have a condition such that leaving his or her home is medically contraindicated. In addition, the patient also meets the following criteria: patient is normally unable to leave the home and leaving home requires considerable taxing effort. Addendum to Home Health Certification Practitioner's Certification: I certify that the patient has been under my care in the hospital and the care of attending physician (see below). We had a hrgc-wb-zwth encounter on (see date below). My clinical findings indicate that the patient is home bound per the above criteria and the Home Health Services noted in these orders are medically necessary. The primary reason for the ajod-pv-bmnl encounter is related to the fact that the patient requires home health services. Date Certifying Wunh-pu-Homq Physician Encounter: 06/18/24 Physician's Name who will Assume Oversight for Services: Esperanza Frances Physician's Phone No.who will Assume Oversight for Service: [employer] - Community Resources: No PT to Evaluate: No PT to evaluate and provide a treatmnet plan to increase patient's mobility and strength. Wound Care: Yes Home Health RN - Wound Care Order: Daily packing IV Therapy: No RN Safety Evaluation: Yes RN to evaluate and create a plan of care that will produce positive outcomes. Palliative Treatment: No Palliative treatment and evaluate the need for hospice. Home Health Aide - Personal Care: No Home Health Aide to assist with any ADL's. Exam Vital Signs Temp Pulse Resp BP Pulse Ox O2 Del Method O2 Flow Rate 97.1 F 83 16 145/90 H 97 Room Air 3 06/24/24 11:58 06/24/24 12:22 06/24/24 11:58 06/24/24 11:58 06/24/24 11:58 06/24/24 11:58 06/19/24 19:17 Narrative Exam General: AAOx3, NAD, Brazilian-speaking male, obese HEENT: Moist mucous membranes, conjunctiva clear, EOMI, PERRLA, Cardiovascular: S1, S2, radial pulses +2 bilat, RRR Pulmonary: CTAB bilat no cough, no wheezing GI: No tenderness to light or deep palpitation, no guarding, rigidity, rebound tenderness or distension Extremities: Right lower extremity appears to be a bit edematous and erythematous, some dried blood near dressing, no active drainage of pus, tender to palpation over right lower extremity, Neuro: AAOx3, no focal motor or sensory deficits in the UE or LE bilat Psych: Good judgement, thought and behavior. Cooperative Discharge Plan Plan Patient Disposition: HOME (Self Care) Patient condition on transfer: Stable Care Plan Goals: Discharge instructions Follow-up with your PCP within 1 week Follow up with your surgeon, Dr. Gupta within one week, Follow-up with Wound care, you will have to go with them directly, this will occur once a week Perform dressing changes Finish up your antibiotic course that we are prescribing you, Augmentin twice a day for seven days Use Melbourne up to four times a day as needed for pain, however DO NOT EXCEED MORE THAN 4 TABLETS IN ONE DAY Take your medicines as prescribed Return to ER symptoms worsen or return Wound Care Instructions: 1) Follow up at [facility], [address] [place] [address]. Call [phone] appointment time is 9:15am Thursday June 27, 2024. 2) May shower than change dressings 3) You have a wound that needs special care to heal.? Your body will make the new skin needed to close your wound, but you have to help.? Germs and old skin on the wound have to be removed.? This is done by changing the dressing on the wound as directed by your doctor. Wound:? Right behind the knee and top of foot Supplies/Equipment (keep all supplies in one place clean and dry) o?? Normal Saline (salt water) solution.? You can make you own by boiling 2 cups of water with ? teaspoon of salt for 10 minutes.? Keep in a glass jar in the refrigerator and make a new batch every day. o?? Clean/Irrigate wound with ?normal saline or wound cleanser o?? Medication for wound: normal saline moistened gauze o?? Primary dressing ? o?? Secondary dressing: dry gauze and gauze roll o?? Tape o?? Gloves o?? Q-tips o?? Small trash bag o?? Other supplies Follow these instructions: 1.??? Wash your hands with soap and water. 2.??? Gather all your supplies and place on a clean towel or paper towel. 3.??? Put on gloves.- 4.??? Remove all of the old dressing (including gauze packing if any) and put in the trash bag. 5.??? Take off the gloves and put in trash bag. 6.??? If not using gloves wash your hands again or put on new gloves. 7.??? Irrigate wound with Normal saline. ?Place gauze in trash bag. 8. Pack entire wound starting at deepest area including underneath the skin until resitatnce felt than fill remaining cavity. Cover with dry gauze and secure with gauze wrap. Change once a day and as needed for falling off or saturating. If active bleeding occurs, apply tight dressing and return to MD or ER. ? Notify primary doctor or return to Emergency Room if any of the following: ? Fever above 100.6? F. ? Increased pain ? Increase swelling ? Red streaks around your wound ? Drainage becomes foul smelling or changes color ? The wound is larger or deeper ? The wound looks dried out or dark ? Bleeding that does not stop with holding pressure Prescriptions/Referrals Prescriptions/Med Rec: New amoxicillin-pot clavulanate [Augmentin XR] 1,000-62.5 mg tablet extended release 12 hr 1 tab PO BID 7 Days Qty: 14 0RF Rx Instructions: Take one tablet by mouth twice a day hydrocodone-acetaminophen 7.5-325 mg tablet 1 tab PO Q6H MDD 4 pills in one day PRN (Reason: pain and during dressing changes ) 5 Days Qty: 20 0RF Rx Instructions: Take one tablet by mouth every 6 hours as needed for pain, DO NOT EXCEED MORE THAN 4 PILLS IN ONE DAY Continued Jardiance 25 mg Tablet 25 mg PO QAM metformin 1,000 mg tablet 1,000 mg PO BID Januvia 100 mg tablet 100 mg PO QDAY losartan 50 mg tablet 50 mg PO QDAY Discontinued Januvia 100 mg Tablet 100 mg PO QDAY Referrals: Esperanza Frances, [employer] [Primary Care Provider] - Patient/Caregiver Discharge Instructions Discharge Activity: activity as tolerated Education Materials: Nutrition for Wound Healing, Changing Dressing Dc, Discharge Instructions Wound ..., Preventing Surgical Site Infections, Wound Dressing Change Steps, ED Diet: Diabetes Print Language: Brazilian Stand Alone Forms: [employer] Award Info., Patient Portal Info Letter Discharge Order Discharge Orders: Discharge (Routine); Ordered 06/24/24 Ordered By: Matt Clifford Quality Discharge Quality Measures VTE prophylaxis (Lovenox) Attestestation MD Attestation I have examined the patient, reviewed labs and imaging findings, discussed the case with the resident(s), and reviewed entered orders. I agree with the plan of care as outlined in this note. Time Spent: [address] Pacheco MD
[2024-06-24 15:40] VITALS: BP 127/86; PULSE 94; RESP 18; TEMP 37; O2SAT 92
== END 2024-06-24 16:05 | disposition home or self-care (01) | DRG 571 ==
LOC: SERX 09:14 → SERHOLD 09:57 → S3SX 19:44
PROVIDERS: Nurse Practitioner Family; Nurse Practitioner Primary Care; Surgery; Admitting Provider Student in an Organized Health Care Education/Training Program; Emergency Provider Emergency Medicine; PCP Nurse Practitioner Family; Visit Provider Student in an Organized Health Care Education/Training Program
DX: L02.415 Cutaneous abscess of right lower limb (principal); E11.52 Type 2 diabetes mellitus with diabetic peripheral angiopathy with gangrene; L02.611 Cutaneous abscess of right foot; L03.115 Cellulitis of right lower limb; D64.9 Anemia, unspecified; E11.65 Type 2 diabetes mellitus with hyperglycemia; I10 Essential (primary) hypertension; E66.9 Obesity, unspecified; E78.5 Hyperlipidemia, unspecified; F17.200 Nicotine dependence, unspecified, uncomplicated; Z79.4 Long term (current) use of insulin; Z68.34 Body mass index [BMI] 34.0-34.9, adult
CPT/HCPCS: 36415; 73600; 73701; 73719; 80053; 80061; 80069; 80202; 83036; 83605; 83735; 84100; 84145; 85025; 85610; 85652; 86140; 87040; 87070; 87075; 87077; 87081; 87186; 87205; 93005; 93971; 96365; 96366; 96367; 96372; 99285; A4217; A4649; A9579; J0131; J0696; J1100; J1650; J1815; J1885; J2250; J2270; J2405; J2543; J2704; J3010; J3370; Q9967; A9270

== ENCOUNTER → 2024-06-27 | Outpatient (CLI) | payer OTHER, SELFPAY | END | disposition home or self-care (01) | PROVIDERS: PCP Family Medicine; Referring Provider Family Medicine; Visit Provider Student in an Organized Health Care Education/Training Program | DX: L97.812 Non-pressure chronic ulcer of other part of right lower leg with fat layer exposed (principal); L97.315 Non-pressure chronic ulcer of right ankle with muscle involvement without evidence of necrosis; L97.515 Non-pressure chronic ulcer of other part of right foot with muscle involvement without evidence of necrosis; F17.200 Nicotine dependence, unspecified, uncomplicated; I10 Essential (primary) hypertension; M10.9 Gout, unspecified; E66.9 Obesity, unspecified; L03.90 Cellulitis, unspecified; F10.90 Alcohol use, unspecified, uncomplicated | CPT/HCPCS: 11042; 11045; 99213; A9270; G0463 ==

== ENCOUNTER → 2024-07-05 | Outpatient (CLI) | payer OTHER, SELFPAY | END | disposition home or self-care (01) | PROVIDERS: Referring Provider Student in an Organized Health Care Education/Training Program; Visit Provider Student in an Organized Health Care Education/Training Program | DX: E11.621 Type 2 diabetes mellitus with foot ulcer (principal) | CPT/HCPCS: 87070; 87075; 87205 ==

== ENCOUNTER → 2024-07-05 | Outpatient (CLI) | payer OTHER, SELFPAY | END | disposition home or self-care (01) | PROVIDERS: PCP Family Medicine; Referring Provider Family Medicine; Visit Provider Student in an Organized Health Care Education/Training Program | DX: L97.812 Non-pressure chronic ulcer of other part of right lower leg with fat layer exposed (principal); L97.315 Non-pressure chronic ulcer of right ankle with muscle involvement without evidence of necrosis; L97.515 Non-pressure chronic ulcer of other part of right foot with muscle involvement without evidence of necrosis; F17.200 Nicotine dependence, unspecified, uncomplicated; I10 Essential (primary) hypertension; M10.9 Gout, unspecified; E66.9 Obesity, unspecified; L03.90 Cellulitis, unspecified; F10.90 Alcohol use, unspecified, uncomplicated | CPT/HCPCS: 11042; 11045; A9270 ==

== ENCOUNTER → 2024-07-11 | Outpatient (CLI) | payer OTHER, SELFPAY | END | disposition home or self-care (01) | LOC: SWHD 08:55 | PROVIDERS: PCP Family Medicine; Referring Provider Family Medicine; Visit Provider Student in an Organized Health Care Education/Training Program | DX: L97.812 Non-pressure chronic ulcer of other part of right lower leg with fat layer exposed (principal); L97.515 Non-pressure chronic ulcer of other part of right foot with muscle involvement without evidence of necrosis; L97.315 Non-pressure chronic ulcer of right ankle with muscle involvement without evidence of necrosis; F17.200 Nicotine dependence, unspecified, uncomplicated; I10 Essential (primary) hypertension; M18.9 Osteoarthritis of first carpometacarpal joint, unspecified; E66.9 Obesity, unspecified; L03.90 Cellulitis, unspecified; F10.90 Alcohol use, unspecified, uncomplicated | CPT/HCPCS: 11042; 11045; 11043; A9270 ==

== ENCOUNTER → 2024-07-18 | Outpatient (CLI) | payer OTHER, SELFPAY | END | disposition home or self-care (01) | LOC: SWHD 10:19 | PROVIDERS: PCP Family Medicine; Referring Provider Family Medicine; Visit Provider Student in an Organized Health Care Education/Training Program | DX: L97.812 Non-pressure chronic ulcer of other part of right lower leg with fat layer exposed (principal); L97.512 Non-pressure chronic ulcer of other part of right foot with fat layer exposed; L97.313 Non-pressure chronic ulcer of right ankle with necrosis of muscle; F17.200 Nicotine dependence, unspecified, uncomplicated; I10 Essential (primary) hypertension; M18.9 Osteoarthritis of first carpometacarpal joint, unspecified; E66.9 Obesity, unspecified; L03.90 Cellulitis, unspecified; F10.90 Alcohol use, unspecified, uncomplicated | CPT/HCPCS: 11042; 11045; 97597; 11043; A9270 ==

== ENCOUNTER → 2024-07-25 | Outpatient (CLI) | payer OTHER, SELFPAY | END | disposition home or self-care (01) | LOC: SWHD 10:07 | PROVIDERS: PCP Family Medicine; Referring Provider Family Medicine; Visit Provider Student in an Organized Health Care Education/Training Program | DX: L97.812 Non-pressure chronic ulcer of other part of right lower leg with fat layer exposed (principal); L97.512 Non-pressure chronic ulcer of other part of right foot with fat layer exposed; L97.312 Non-pressure chronic ulcer of right ankle with fat layer exposed; F17.200 Nicotine dependence, unspecified, uncomplicated; I10 Essential (primary) hypertension; M18.9 Osteoarthritis of first carpometacarpal joint, unspecified; E66.9 Obesity, unspecified; L03.90 Cellulitis, unspecified; F10.90 Alcohol use, unspecified, uncomplicated | CPT/HCPCS: 97597; 11042; 11045; A9270 ==

== ENCOUNTER → 2024-08-01 | Outpatient (CLI) | payer OTHER, SELFPAY | END | disposition home or self-care (01) | LOC: SWHD 09:58 | PROVIDERS: PCP Family Medicine; Referring Provider Family Medicine; Visit Provider Student in an Organized Health Care Education/Training Program | DX: L97.812 Non-pressure chronic ulcer of other part of right lower leg with fat layer exposed (principal); L97.515 Non-pressure chronic ulcer of other part of right foot with muscle involvement without evidence of necrosis; L97.315 Non-pressure chronic ulcer of right ankle with muscle involvement without evidence of necrosis; F17.200 Nicotine dependence, unspecified, uncomplicated; I10 Essential (primary) hypertension; L03.90 Cellulitis, unspecified; F10.90 Alcohol use, unspecified, uncomplicated | CPT/HCPCS: 97597; 97598; A9270 ==

== ENCOUNTER → 2024-08-08 | Outpatient (CLI) | payer OTHER, SELFPAY | END | disposition home or self-care (01) | LOC: SWHD 09:55 | PROVIDERS: PCP Family Medicine; Referring Provider Family Medicine; Visit Provider Student in an Organized Health Care Education/Training Program | DX: L97.812 Non-pressure chronic ulcer of other part of right lower leg with fat layer exposed (principal); L97.512 Non-pressure chronic ulcer of other part of right foot with fat layer exposed; L97.312 Non-pressure chronic ulcer of right ankle with fat layer exposed; F17.200 Nicotine dependence, unspecified, uncomplicated; I10 Essential (primary) hypertension; L03.90 Cellulitis, unspecified; F10.90 Alcohol use, unspecified, uncomplicated | CPT/HCPCS: 97597; A9270 ==

== ENCOUNTER → 2024-08-22 | Outpatient (CLI) | payer OTHER, SELFPAY | END | disposition home or self-care (01) | LOC: SWHD 09:41 | PROVIDERS: PCP Family Medicine; Referring Provider Family Medicine; Visit Provider Student in an Organized Health Care Education/Training Program | DX: L97.812 Non-pressure chronic ulcer of other part of right lower leg with fat layer exposed (principal); L97.512 Non-pressure chronic ulcer of other part of right foot with fat layer exposed; L97.315 Non-pressure chronic ulcer of right ankle with muscle involvement without evidence of necrosis; F17.200 Nicotine dependence, unspecified, uncomplicated; I10 Essential (primary) hypertension; L03.90 Cellulitis, unspecified; F10.90 Alcohol use, unspecified, uncomplicated | CPT/HCPCS: 17250; A9270 ==

== ENCOUNTER → 2024-08-26 | Outpatient (CLI) | payer OTHER, SELFPAY | END | disposition home or self-care (01) | LOC: SWHD 08:18 | PROVIDERS: PCP Family Medicine; Referring Provider Family Medicine; Visit Provider Physician Assistant | DX: L97.812 Non-pressure chronic ulcer of other part of right lower leg with fat layer exposed (principal); L97.512 Non-pressure chronic ulcer of other part of right foot with fat layer exposed; L97.315 Non-pressure chronic ulcer of right ankle with muscle involvement without evidence of necrosis; F17.200 Nicotine dependence, unspecified, uncomplicated; I10 Essential (primary) hypertension; L03.90 Cellulitis, unspecified; F10.90 Alcohol use, unspecified, uncomplicated | CPT/HCPCS: 29581 ==

== ENCOUNTER → 2024-08-29 | Outpatient (CLI) | payer OTHER, SELFPAY | END | disposition home or self-care (01) | LOC: SWHD 08:29 | PROVIDERS: PCP Family Medicine; Referring Provider Family Medicine; Visit Provider Student in an Organized Health Care Education/Training Program | DX: L97.812 Non-pressure chronic ulcer of other part of right lower leg with fat layer exposed (principal); L97.512 Non-pressure chronic ulcer of other part of right foot with fat layer exposed; L97.315 Non-pressure chronic ulcer of right ankle with muscle involvement without evidence of necrosis; F17.200 Nicotine dependence, unspecified, uncomplicated; I10 Essential (primary) hypertension; L03.90 Cellulitis, unspecified; F10.90 Alcohol use, unspecified, uncomplicated | CPT/HCPCS: 11043; 17250; A9270 ==

== ENCOUNTER → 2024-09-05 | Outpatient (CLI) | payer OTHER, SELFPAY | END | disposition home or self-care (01) | LOC: SWHD 08:13 | PROVIDERS: PCP Family Medicine; Referring Provider Family Medicine; Visit Provider Student in an Organized Health Care Education/Training Program | DX: L97.812 Non-pressure chronic ulcer of other part of right lower leg with fat layer exposed (principal); L97.512 Non-pressure chronic ulcer of other part of right foot with fat layer exposed; L97.315 Non-pressure chronic ulcer of right ankle with muscle involvement without evidence of necrosis; F17.200 Nicotine dependence, unspecified, uncomplicated; I10 Essential (primary) hypertension; L03.90 Cellulitis, unspecified; F10.90 Alcohol use, unspecified, uncomplicated | CPT/HCPCS: 17250; A9270 ==

== ENCOUNTER → 2024-09-12 | Outpatient (CLI) | payer OTHER, SELFPAY | END | disposition home or self-care (01) | LOC: SWHD 08:28 | PROVIDERS: PCP Family Medicine; Referring Provider Family Medicine; Visit Provider Surgery | DX: L97.512 Non-pressure chronic ulcer of other part of right foot with fat layer exposed (principal); L97.312 Non-pressure chronic ulcer of right ankle with fat layer exposed; F17.200 Nicotine dependence, unspecified, uncomplicated; I10 Essential (primary) hypertension; L03.90 Cellulitis, unspecified; F10.90 Alcohol use, unspecified, uncomplicated | CPT/HCPCS: 11042; A9270 ==

== ENCOUNTER → 2024-09-19 | Outpatient (CLI) | payer OTHER, SELFPAY | END | disposition home or self-care (01) | LOC: SWHD 08:02 | PROVIDERS: PCP Family Medicine; Referring Provider Family Medicine; Visit Provider Student in an Organized Health Care Education/Training Program | DX: L97.512 Non-pressure chronic ulcer of other part of right foot with fat layer exposed (principal); L97.312 Non-pressure chronic ulcer of right ankle with fat layer exposed; F17.200 Nicotine dependence, unspecified, uncomplicated; I10 Essential (primary) hypertension; L03.90 Cellulitis, unspecified; F10.90 Alcohol use, unspecified, uncomplicated | CPT/HCPCS: 17250; 97597; A9270 ==

== ENCOUNTER → 2024-09-26 | Outpatient (CLI) | payer OTHER, SELFPAY | END | disposition home or self-care (01) | LOC: SWHD 08:15 | PROVIDERS: PCP Family Medicine; Referring Provider Family Medicine; Visit Provider Student in an Organized Health Care Education/Training Program | DX: L97.512 Non-pressure chronic ulcer of other part of right foot with fat layer exposed (principal); L97.312 Non-pressure chronic ulcer of right ankle with fat layer exposed; F17.200 Nicotine dependence, unspecified, uncomplicated; L03.90 Cellulitis, unspecified; F10.90 Alcohol use, unspecified, uncomplicated; I10 Essential (primary) hypertension | CPT/HCPCS: 29580; A9270 ==

== ENCOUNTER → 2024-10-03 | Outpatient (CLI) | payer OTHER, SELFPAY | END | disposition home or self-care (01) | LOC: SWHD 08:08 | PROVIDERS: PCP Family Medicine; Referring Provider Family Medicine; Visit Provider Student in an Organized Health Care Education/Training Program | DX: E11.621 Type 2 diabetes mellitus with foot ulcer (principal); L97.512 Non-pressure chronic ulcer of other part of right foot with fat layer exposed; L97.312 Non-pressure chronic ulcer of right ankle with fat layer exposed; E66.9 Obesity, unspecified; F17.200 Nicotine dependence, unspecified, uncomplicated; I10 Essential (primary) hypertension; M10.9 Gout, unspecified; F10.90 Alcohol use, unspecified, uncomplicated | CPT/HCPCS: 97597; A9270 ==

== ENCOUNTER → 2024-10-12 | Outpatient (CLI) | payer OTHER, SELFPAY | END | disposition home or self-care (01) | LOC: SWHD 08:12 | PROVIDERS: PCP Family Medicine; Referring Provider Family Medicine; Visit Provider Student in an Organized Health Care Education/Training Program | DX: E11.621 Type 2 diabetes mellitus with foot ulcer (principal); L97.315 Non-pressure chronic ulcer of right ankle with muscle involvement without evidence of necrosis; L97.512 Non-pressure chronic ulcer of other part of right foot with fat layer exposed; E66.9 Obesity, unspecified; F17.200 Nicotine dependence, unspecified, uncomplicated; I10 Essential (primary) hypertension; M10.9 Gout, unspecified; F10.90 Alcohol use, unspecified, uncomplicated | CPT/HCPCS: 97597; A9270 ==

== ENCOUNTER → 2024-10-19 | Outpatient (CLI) | payer OTHER, SELFPAY | END | disposition home or self-care (01) | LOC: SWHD 07:58 | PROVIDERS: PCP Family Medicine; Referring Provider Family Medicine; Visit Provider Student in an Organized Health Care Education/Training Program | DX: E11.621 Type 2 diabetes mellitus with foot ulcer (principal); L97.512 Non-pressure chronic ulcer of other part of right foot with fat layer exposed; L97.312 Non-pressure chronic ulcer of right ankle with fat layer exposed; E66.9 Obesity, unspecified; F17.200 Nicotine dependence, unspecified, uncomplicated; I10 Essential (primary) hypertension; M10.9 Gout, unspecified; F10.90 Alcohol use, unspecified, uncomplicated | CPT/HCPCS: 97597; 11042; A9270 ==

== ENCOUNTER → 2024-10-26 | Outpatient (CLI) | payer OTHER, SELFPAY | END | disposition home or self-care (01) | LOC: SWHD 09:09 | PROVIDERS: PCP Family Medicine; Referring Provider Family Medicine; Visit Provider Student in an Organized Health Care Education/Training Program | DX: E11.621 Type 2 diabetes mellitus with foot ulcer (principal); L97.512 Non-pressure chronic ulcer of other part of right foot with fat layer exposed; L97.315 Non-pressure chronic ulcer of right ankle with muscle involvement without evidence of necrosis; E66.9 Obesity, unspecified; F17.200 Nicotine dependence, unspecified, uncomplicated; I10 Essential (primary) hypertension; M10.9 Gout, unspecified; F10.90 Alcohol use, unspecified, uncomplicated | CPT/HCPCS: 11042; 29581; A9270 ==

== ENCOUNTER → 2024-11-02 | Outpatient (CLI) | payer OTHER, SELFPAY | END | disposition home or self-care (01) | LOC: SWHD 08:33 | PROVIDERS: PCP Family Medicine; Referring Provider Family Medicine; Visit Provider Student in an Organized Health Care Education/Training Program | DX: E11.621 Type 2 diabetes mellitus with foot ulcer (principal); L97.512 Non-pressure chronic ulcer of other part of right foot with fat layer exposed; L97.315 Non-pressure chronic ulcer of right ankle with muscle involvement without evidence of necrosis; E66.9 Obesity, unspecified; F17.200 Nicotine dependence, unspecified, uncomplicated; I10 Essential (primary) hypertension; M10.9 Gout, unspecified; F10.90 Alcohol use, unspecified, uncomplicated | CPT/HCPCS: 11042; A9270 ==

== ENCOUNTER → 2024-11-07 | Outpatient (CLI) | payer OTHER, SELFPAY | END | disposition home or self-care (01) | LOC: SWHD 09:13 | PROVIDERS: PCP Family Medicine; Referring Provider Family Medicine; Visit Provider Student in an Organized Health Care Education/Training Program | DX: E11.621 Type 2 diabetes mellitus with foot ulcer (principal); L97.512 Non-pressure chronic ulcer of other part of right foot with fat layer exposed; L97.312 Non-pressure chronic ulcer of right ankle with fat layer exposed; E66.9 Obesity, unspecified; F17.200 Nicotine dependence, unspecified, uncomplicated; I10 Essential (primary) hypertension; M10.9 Gout, unspecified; F10.90 Alcohol use, unspecified, uncomplicated | CPT/HCPCS: 97597; 29580; A9270 ==

== ENCOUNTER → 2024-11-14 | Outpatient (CLI) | payer OTHER, SELFPAY | END | disposition home or self-care (01) | LOC: SWHD 09:54 | PROVIDERS: PCP Family Medicine; Referring Provider Family Medicine; Visit Provider Student in an Organized Health Care Education/Training Program | DX: E11.621 Type 2 diabetes mellitus with foot ulcer (principal); L97.512 Non-pressure chronic ulcer of other part of right foot with fat layer exposed; L97.312 Non-pressure chronic ulcer of right ankle with fat layer exposed; E66.9 Obesity, unspecified; F17.200 Nicotine dependence, unspecified, uncomplicated; I10 Essential (primary) hypertension; M10.9 Gout, unspecified; F10.90 Alcohol use, unspecified, uncomplicated | CPT/HCPCS: 11042; A9270 ==

== ENCOUNTER → 2024-11-21 | Outpatient (CLI) | payer OTHER, SELFPAY | END | disposition home or self-care (01) | PROVIDERS: PCP Family Medicine; Referring Provider Family Medicine; Visit Provider Surgery | DX: E11.621 Type 2 diabetes mellitus with foot ulcer (principal); L97.512 Non-pressure chronic ulcer of other part of right foot with fat layer exposed; L97.312 Non-pressure chronic ulcer of right ankle with fat layer exposed; E66.9 Obesity, unspecified; F17.200 Nicotine dependence, unspecified, uncomplicated; I10 Essential (primary) hypertension; M10.9 Gout, unspecified; F10.90 Alcohol use, unspecified, uncomplicated | CPT/HCPCS: 29580; A9270 ==

== ENCOUNTER → 2024-11-28 | Outpatient (CLI) | payer OTHER, SELFPAY | END | disposition home or self-care (01) | LOC: SWHD 10:10 | PROVIDERS: PCP Family Medicine; Referring Provider Family Medicine; Visit Provider Student in an Organized Health Care Education/Training Program | DX: E11.621 Type 2 diabetes mellitus with foot ulcer (principal); L97.512 Non-pressure chronic ulcer of other part of right foot with fat layer exposed; L97.312 Non-pressure chronic ulcer of right ankle with fat layer exposed; E66.9 Obesity, unspecified; F17.200 Nicotine dependence, unspecified, uncomplicated; I10 Essential (primary) hypertension; M10.9 Gout, unspecified; F10.90 Alcohol use, unspecified, uncomplicated | CPT/HCPCS: 97597; A9270 ==

== ENCOUNTER → 2024-12-05 | Outpatient (CLI) | payer OTHER, SELFPAY | END | disposition home or self-care (01) | LOC: SWHD 08:00 | PROVIDERS: PCP Family Medicine; Referring Provider Family Medicine; Visit Provider Student in an Organized Health Care Education/Training Program | DX: E11.621 Type 2 diabetes mellitus with foot ulcer (principal); L97.512 Non-pressure chronic ulcer of other part of right foot with fat layer exposed; L97.312 Non-pressure chronic ulcer of right ankle with fat layer exposed; E66.9 Obesity, unspecified; F17.200 Nicotine dependence, unspecified, uncomplicated; I10 Essential (primary) hypertension; M10.9 Gout, unspecified; F10.90 Alcohol use, unspecified, uncomplicated | CPT/HCPCS: 11042; A9270 ==

== ENCOUNTER → 2024-12-12 | Outpatient (CLI) | payer OTHER, SELFPAY | END | disposition home or self-care (01) | LOC: SWHD 08:07 | PROVIDERS: PCP Family Medicine; Referring Provider Family Medicine; Visit Provider Student in an Organized Health Care Education/Training Program | DX: E11.621 Type 2 diabetes mellitus with foot ulcer (principal); L97.512 Non-pressure chronic ulcer of other part of right foot with fat layer exposed; L97.311 Non-pressure chronic ulcer of right ankle limited to breakdown of skin; E66.9 Obesity, unspecified; F17.200 Nicotine dependence, unspecified, uncomplicated; I10 Essential (primary) hypertension; M10.9 Gout, unspecified; F10.90 Alcohol use, unspecified, uncomplicated | CPT/HCPCS: 97597; A9270 ==

== ENCOUNTER → 2024-12-19 | Outpatient (CLI) | payer OTHER, SELFPAY | END | disposition home or self-care (01) | LOC: SWHD 08:02 | PROVIDERS: PCP Family Medicine; Referring Provider Family Medicine; Visit Provider Student in an Organized Health Care Education/Training Program | DX: E11.621 Type 2 diabetes mellitus with foot ulcer (principal) | CPT/HCPCS: 29581; A9270 ==

== ENCOUNTER → 2024-12-26 | Outpatient (CLI) | payer OTHER, SELFPAY | END | disposition home or self-care (01) | LOC: SWHD 08:43 | PROVIDERS: PCP Family Medicine; Referring Provider Student in an Organized Health Care Education/Training Program; Visit Provider Student in an Organized Health Care Education/Training Program | DX: E11.621 Type 2 diabetes mellitus with foot ulcer (principal); L97.512 Non-pressure chronic ulcer of other part of right foot with fat layer exposed; L97.312 Non-pressure chronic ulcer of right ankle with fat layer exposed; E66.9 Obesity, unspecified; F17.200 Nicotine dependence, unspecified, uncomplicated; I10 Essential (primary) hypertension; M10.9 Gout, unspecified; F10.90 Alcohol use, unspecified, uncomplicated | CPT/HCPCS: 11042; A9270 ==

== ENCOUNTER → 2025-01-02 | Outpatient (CLI) | payer OTHER, SELFPAY | END | disposition home or self-care (01) | LOC: SWHD 08:53 | PROVIDERS: PCP Family Medicine; Referring Provider Family Medicine; Visit Provider Student in an Organized Health Care Education/Training Program | DX: E11.621 Type 2 diabetes mellitus with foot ulcer (principal); L97.512 Non-pressure chronic ulcer of other part of right foot with fat layer exposed; L97.312 Non-pressure chronic ulcer of right ankle with fat layer exposed; E66.9 Obesity, unspecified; F17.200 Nicotine dependence, unspecified, uncomplicated; I10 Essential (primary) hypertension; M10.9 Gout, unspecified; F10.90 Alcohol use, unspecified, uncomplicated | CPT/HCPCS: 97597; A9270 ==

== ENCOUNTER → 2025-01-09 | Outpatient (CLI) | payer OTHER, SELFPAY | END | disposition home or self-care (01) | PROVIDERS: PCP Family Medicine; Referring Provider Family Medicine; Visit Provider Student in an Organized Health Care Education/Training Program | DX: E11.621 Type 2 diabetes mellitus with foot ulcer (principal); L97.512 Non-pressure chronic ulcer of other part of right foot with fat layer exposed; L97.312 Non-pressure chronic ulcer of right ankle with fat layer exposed; E66.9 Obesity, unspecified; F17.200 Nicotine dependence, unspecified, uncomplicated; I10 Essential (primary) hypertension; M10.9 Gout, unspecified; F10.90 Alcohol use, unspecified, uncomplicated | CPT/HCPCS: 97597; A9270 ==

== ENCOUNTER → 2025-01-16 | Outpatient (CLI) | payer OTHER, SELFPAY | END | disposition home or self-care (01) | LOC: SWHD 08:16 | PROVIDERS: PCP Family Medicine; Referring Provider Family Medicine; Visit Provider Surgery | DX: E11.621 Type 2 diabetes mellitus with foot ulcer (principal); L97.512 Non-pressure chronic ulcer of other part of right foot with fat layer exposed; L97.312 Non-pressure chronic ulcer of right ankle with fat layer exposed; E66.9 Obesity, unspecified; F17.200 Nicotine dependence, unspecified, uncomplicated; I10 Essential (primary) hypertension; M10.9 Gout, unspecified; F10.90 Alcohol use, unspecified, uncomplicated | CPT/HCPCS: 97597; A9270 ==

== ENCOUNTER → 2025-01-23 | Outpatient (CLI) | payer OTHER, SELFPAY | END | disposition home or self-care (01) | LOC: SWHD 08:02 | PROVIDERS: PCP Family Medicine; Referring Provider Family Medicine; Visit Provider Student in an Organized Health Care Education/Training Program | DX: E11.621 Type 2 diabetes mellitus with foot ulcer (principal); L97.512 Non-pressure chronic ulcer of other part of right foot with fat layer exposed; L97.312 Non-pressure chronic ulcer of right ankle with fat layer exposed; E66.9 Obesity, unspecified; F17.200 Nicotine dependence, unspecified, uncomplicated; I10 Essential (primary) hypertension; M10.9 Gout, unspecified; F10.90 Alcohol use, unspecified, uncomplicated | CPT/HCPCS: 97597; A9270 ==

== ENCOUNTER → 2025-01-30 | Outpatient (CLI) | payer OTHER, SELFPAY | END | disposition home or self-care (01) | LOC: SWHD 08:20 | PROVIDERS: PCP Family Medicine; Referring Provider Family Medicine; Visit Provider Surgery | DX: E11.621 Type 2 diabetes mellitus with foot ulcer (principal); L97.512 Non-pressure chronic ulcer of other part of right foot with fat layer exposed; L97.312 Non-pressure chronic ulcer of right ankle with fat layer exposed; E66.9 Obesity, unspecified; F17.200 Nicotine dependence, unspecified, uncomplicated; I10 Essential (primary) hypertension; M10.9 Gout, unspecified; F10.90 Alcohol use, unspecified, uncomplicated | CPT/HCPCS: 29580; A9270 ==

== ENCOUNTER → 2025-02-06 | Outpatient (CLI) | payer OTHER, SELFPAY | END | disposition home or self-care (01) | LOC: SWHD 08:40 | PROVIDERS: PCP Family Medicine; Referring Provider Family Medicine; Visit Provider Student in an Organized Health Care Education/Training Program | DX: E11.621 Type 2 diabetes mellitus with foot ulcer (principal); L97.512 Non-pressure chronic ulcer of other part of right foot with fat layer exposed; L97.312 Non-pressure chronic ulcer of right ankle with fat layer exposed; E66.9 Obesity, unspecified; F17.200 Nicotine dependence, unspecified, uncomplicated; I10 Essential (primary) hypertension; M10.9 Gout, unspecified; F10.90 Alcohol use, unspecified, uncomplicated | CPT/HCPCS: 29580 ==